=== PATIENT | male | born 1975 | race Two or more races ===

== ENCOUNTER → 2024-09-03 | Outpatient (CLI) | payer MEDICAID, SELFPAY ==
--- NOTE | 2024-09-03 14:00 | XR_ITS ---
Examination: MRI of brain without intravenous contrast. MRI brain with intravenous contrast. Date and time of exam:September 03, 2024 1559 hours INDICATIONS: Low back pain radiating to the legs, dizziness episodes beginning November 2022 Technique: Multiple axial and sagittal images of the brain to been obtained. Siemens high-resolution 1.52 Dulce Maria short bore scanner utilized. Sagittal sections, T1 weighted images, TR 500, TE 14, are performed. Axial sections proton-density and T2-weighted images have been obtained. Inversion recovery axial images, TR 9260, TE 111, TR 2500. Diffusion weighted images, axial sections, TR 4800, TE 128, B value 1000. Axial sections, ADC map, TR 4800, TE 128. Axial and coronal images were also obtained post 16 cc gadolinium administered intravenously. Findings:: Enlargement of the sella turcica is not present. The optic chiasm and infundibular stalk are not remarkable. There is no localized enlargement of the medulla or mohit. Fourth ventricle and cerebellar tonsils appear normal in position. No subacute area of hemorrhage density is seen. Fourth ventricle is midline. Mass in the cerebellopontine angle region is not evident. 7th and 8th nerve complexes exhibit symmetry Globes are symmetrical Orbital musculature including medial lateral rectus muscles do not exhibit abnormality Increased white matter signal is evident, scattered punctate foci increased signal in the white matter Effacement of the cortical sulcal markings is not identified. Mass effect upon the ventricular system is not identified. Diffusion-weighted images demonstrate no focus of restricted diffusion Contrast images demonstrate no abnormal enhancement Impression: Scattered punctate foci increased signal in the white matter, demyelinating disease pattern
== END | disposition home or self-care (01) ==
LOC: SMRI 09-04 08:01
PROVIDERS: PCP Nurse Practitioner Primary Care; Referring Provider Nurse Practitioner Primary Care; Visit Provider Nurse Practitioner Primary Care
DX: R90.82 White matter disease, unspecified (principal)
CPT/HCPCS: 70553; A9579

== ENCOUNTER 2025-04-07 20:44 | Inpatient (IN) | payer MEDICAID, SELFPAY ==
[2025-04-07 20:46] VITALS: BMI 30.7
[2025-04-07 21:02] VITALS: BP 133/86; PULSE 110; RESP 20; TEMP 37.7; O2SAT 97
--- NOTE | 2025-04-07 21:13 | XR_ITS ---
Examination: Duplex scan of the lower extremity, unilateral left Date and time of exam: April 07, 2025 10:12 PM INDICATIONS: Left leg swelling and pain 1 week Technique: Duplex scan of the extremity veins using B-mode/grayscale imaging and Doppler spectral analysis and color flow Attention is directed to internal echogenicity, compression and augmentation involving these veins, color flow assessment, spectral analysis Findings: Major deep venous structures in the extremity demonstrate normal course and caliber. There is no evidence of deep vein thrombosis. Normal color flow and spectral analysis Impression: Negative for DVT..
--- NOTE | 2025-04-07 21:13 | XR_ITS ---
Examination: Knee, left , 3 views Technique: Knee AP, lateral, oblique 3 views Date and time of exam: April 072024, 2116 hours INDICATIONS: Left knee pain one week FINDINGS: Minimal tricompartment osteoarthritis Prepatellar soft tissue prominence Small knee effusion No fracture IMPRESSION: Prepatellar soft tissue prominence, consider ultrasound soft tissue need follow-up to exclude prepatellar abscess
--- NOTE | 2025-04-07 21:13 | PD.EDRME ---
Rapid Medical Screening Exam RME Arrival date/time: 04/07/25 20:44 49M with no significant PMH presents to ED with 1 week of worsening LLE pain, redness, and swelling. Patient believes it started after he was poked by a lemon tree. Patient has not had a tetanus shot in the past 5 years. Patient has been taking Keflex and Doxy w/o improvement. Patient denies L knee surgery. Chief Complaint: Extremity Injury, Lower Vital signs: Vital Signs Temperature 99.8 F 04/07/25 21:02 Pulse Rate 110 H 04/07/25 21:02 Respiratory Rate 20 04/07/25 21:02 Blood Pressure 133/86 H 04/07/25 21:02 Pulse Oximetry (%) 97 04/07/25 21:02 Oxygen Delivery Method Room Air 04/07/25 21:02
[2025-04-07] MEDS: ACETAMINOPHEN 500 MG TABLET 1000 MG PO (21:37)
[2025-04-07] MEDS: DIPHTH,PERTUSS(ACELL),TET VAC 0.5 ML SYR- ADULT IMi (21:37)
[2025-04-07 21:43] LABS: Lactate (Lactic Acid) 1.1 mMol/L (0.4-2.0)
[2025-04-07 21:44] LABS: Basophils # (Auto) 0.1 Thou/mm3 (0.0-0.2); Basophils % (Auto) 1 % (0-2.5); Eosinophils # (Auto) 0.0 Thou/mm3 (0.0-0.5); Eosinophils % (Auto) 1 % (0-10); Hematocrit 42.0 % (41.0-53.0); Hemoglobin 14.6 g/dL (13.5-16.0); Immature Granulocytes Auto 0.41 Thou/mm3 (0.00-0.00); Lymphocytes # (Auto) 1.7 Thou/mm3 (1.0-4.8); Lymphocytes % (Auto) 27 % (10-50); Mean Corpuscular HGB Conc 34.8 g/dl (31.0-37.0); Mean Corpuscular Hemoglobin 32.1 pg (25.0-35.0); Mean Corpuscular Volume 92 fL (80-100); Monocytes # (Auto) 0.5 Thou/mm3 (0.0-0.8); Monocytes % (Auto) 8 % (0-12); Neutrophils # (Auto) 3.6 Thou/mm3 (1.8-7.7); Neutrophils % (Auto) 58 % (37-80); Nucleated Red Blood Cell # 0.00 Thou/mm3 (0.00-0.00); Nucleated Red Blood Cell % 0 /100 WBC (0); Platelet Count 234 Thou/mm3 (140-440); RDW Standard Deviation 42.2 fL (35.1-43.9); Red Blood Count 4.55 Miln/mm3 (4.50-5.90); White Blood Count 6.3 Thou/mm3 (3.8-10.6)
[2025-04-07 21:53] LABS: Sed Rate (ESR) 72 mm/hr (0-15)
[2025-04-07 22:13] LABS: Alanine Aminotransferase 59 U/L (10-49); Albumin, Serum 4.3 gm/dL (3.5-5.0); Albumin/Globulin Ratio 1.4 (1.2-2.2); Alkaline Phosphatase 80 U/L (46-116); Anion Gap 11 (7-16); Aspartate Amino Transferase 50 U/L (0-34); BUN/Creatinine Ratio 17 Ratio (12-20); Bilirubin,Total 0.8 mg/dL (0.3-1.2); Blood Urea Nitrogen 15 mg/dL (9-23); C-Reactive Protein 9.1 mg/dL (0.0-0.9); Calcium 9.1 mg/dL (8.3-10.6); Calcium (Corrected) 9.1 mg/dL (8.5-10.1); Carbon Dioxide 23.6 mMol/L (20.0-31.0); Chloride 104 mMol/L (98-107); Creatinine (Component) 0.9 mg/dL (0.6-1.3); Estimated Creatinine Clearance 103.3 mL/min (>60); Globulin 3.0 gm/dL (2.3-3.5); Glucose 103 mg/dL (74-106); Osmolality,Calculated 278 (275-295); Potassium 3.7 mMol/L (3.4-5.1); Procalcitonin 0.16 ng/ml (0.0-0.49); Sodium 139 mMol/L (136-145); Total Protein 7.3 gm/dL (5.7-8.2); eGFR > 60 See Note
[2025-04-08] VITALS (9 sets, daily range): BP systolic 124–137; BP diastolic 79–93; PULSE 70–81; RESP 16–19; TEMP 36.1–37.3; O2SAT 92–97
--- NOTE | 2025-04-08 | XR_ITS ---
Examination: Fluoroscopically guided left knee joint aspiration with imaging guidance Fluoroscopy AP right knee single view. Exam date and time: April 08, 2025 0911 hours INDICATIONS: Left knee swelling, clinical diagnosis infection left knee Informed consent provided. Technique: A timeout was completed verifying correct patient, procedure, site, positioning. The patient was placed in supine position appropriate for the steroid injection The patient's site was prepped and draped in sterile fashion 5 cc 1% lidocaine administered locally for anesthesia. Sterile drape applied, maximum barrier sterile technique. Utilizing fluoroscopic guidance, 21-gauge needle placed in the knee joint 10 cc turbid fluid withdrawn for analysis The patient was in satisfactory and stable condition on completion of the procedure Attending radiologist was present for the entire procedure Estimated blood loss 0 cc. Impression: Successful fluoroscopically guided left knee joint aspiration with imaging guidance Fluoroscopy 0.1 minute radiation dose 0.18 milligray 1 spot fluoroscopic AP knee film.
--- NOTE | 2025-04-08 00:15 | EDNOTE_ITS ---
ED Skin Abcess FB-RME/HPI General Chief complaint: Extremity Injury, Lower Stated complaint: LEFT LEG REDNESS, SWELLING, AND HOT TO TOUCH Arrival date/time: 04/07/25 20:44 RME / HPI RME / HPI narrative: 04/07/25 20:44 49M with no significant PMH presents to ED with 1 week of worsening LLE pain, redness, and swelling. Patient believes it started after he was poked by a lemon tree. Patient has not had a tetanus shot in the past 5 years. Patient has been taking Keflex and Doxy w/o improvement. Patient denies L knee surgery. 49 y/o male presents to ED c/o left knee redness, swelling, and pain x 7 days. Patient states he pricked his knee on a lemon tree 10 days ago. Patient was seen at the [facility] ED last Sunday for the same complaint. He is currently on Metformin, [place], Ibuprofen, Keflex, Doxycycline, and a probiotic. Related Data Allergies Allergy/AdvReac Type Severity Reaction Status Date / Time No Known Allergies Allergy Verified 04/07/25 20:46 Review of Systems Review of Systems Systems Reviewed: All systems reviewed, normal except as documented ED Exam Narrative Physical exam: GENERAL APPEARANCE: alert and oriented x 4, well-developed, well-nourished, no acute distress VITALS: All vitals were reviewed and the pulse ox is 97% on room air, which is normal according to my interpretation. HEENT: Normocephalic, atraumatic; pupils equal, round, reactive to light; EOMI; mucous membranes pink, moist; oropharynx clear NECK: Supple LUNGS: CTABL; no wheezes, no rales, no rhonchi HEART: Regular rate, regular rhythm; normal S1, S2; no murmurs ABDOMEN: non distended; normal BS; soft, no tenderness, no guarding, no rebound; no masses, no organomegaly, no hernia BACK: no CVA tenderness EXTREMITIES: atraumatic; no edema LLE: Knee erythematous, erythema circumferential, TTP, joint effusion, limited ROM, warm to touch NEUROLOGIC: awake; alert and oriented x4; cranial nerves II-XII grossly intact; no focal sensory or motor deficits PSYCHIATRIC: appropriate mood and affect SKIN: warm, dry, normal color; no rashes Course Quality Measures none Orders Category Date Time Status IV [Insert IV] STAT Care 04/08/25 00:56 Active Consult to Infectious Diseases Routine Cons 04/08/25 01:24 Ordered Consult to Orthopedic Stat Cons 04/08/25 01:35 Ordered US venous doppler LE LT Stat Exams 04/07/25 21:13 Completed XR knee LT 3V Stat Exams 04/07/25 21:13 Completed XR knee limited LT 2V Stat Exams 04/08/25 01:27 Ordered Blood Culture (Lab) Stat Lab 04/07/25 21:36 Received Body Fld Culture & Gram Stain Stat Lab 04/08/25 01:22 Received CBC Stat Lab 04/07/25 21:35 Completed CMP [Comprehensive Metabolic Panel] Stat Lab 04/07/25 21:35 Completed CRP [C-Reactive Protein] Stat Lab 04/07/25 21:35 Completed ESR [Sed Rate (ESR)] Stat Lab 04/07/25 21:35 Completed Lactate (Lactic Acid) Stat Lab 04/07/25 21:35 Completed Procalcitonin Stat Lab 04/07/25 21:35 Completed Wound Culture and Gram Stain Stat Lab 04/08/25 01:22 Received Acetaminophen Tab [Tylenol ES Tab] Med 04/07/25 21:13 Discontinued 1,000 mg PO X1 ONE Lidocaine 1% 20 ml [Xylocaine 1% 20 ML] Med 04/08/25 00:16 Discontinued 10 ml INFL X1 ONE Morphine Inj Med 04/08/25 00:20 Discontinued 5 mg IVP X1 ONE Ondansetron Inj [Zofran Inj] Med 04/08/25 00:20 Discontinued 4 mg IVP X1 ONE Piper/Tazo 3.375 gm Premix [Zosyn] Med 04/08/25 00:20 Discontinued 3.375 gm in 50 ml IV X1 TET,DIP/PERT AC (Adult)-Tdap [Boostrix Adult (Tdap) Med 04/07/25 21:14 Discontinued Vacc] 0.5 ml IMI .ONCE ONE Vancomycin Inj 1,000 mg Med 04/08/25 00:20 Active Sodium Chloride 0.9% 250 ml [Ns] 250 ml IV X1 Vital Signs Vital signs: Vital Signs Temperature 99.8 F 04/07/25 21:02 Pulse Rate 110 H 04/07/25 21:02 Respiratory Rate 20 04/07/25 21:02 Blood Pressure 133/86 H 04/07/25 21:02 Pulse Oximetry (%) 97 04/07/25 21:02 Oxygen Delivery Method Room Air 04/07/25 21:02 Skin / Abscess / Foreign Body MDM Narrative MDM Narrative:: Scribe Attestation: I, Devika Lawson, am scribing for and in the presence of Dr. Miller. Provider Notation: Although this document has been carefully reviewed, there may still be some phonetic and other typographical errors.? These errors are purely grammatical due to imperfections in the software program and should not be construed in any way to? compromise the substance of the patient's medical care during this visit. Patient data External records reviewed:: [facility] previous records (No prior ED records available for review.) Clinical information provided by:: patient Social determinants that could affect healthcare access:: none Patient has the following chronic illnesses:: None reported How is presenting disease/condition affected by chronic disease/condition?: no c hronic disease Evaluation data The following diagnostics were reviewed and interpreted by me:: lab results and radiology exam(s) Lab and/or radiology exams considered but not ordered:: None Interpretation Summary: RADIOLOGY Venous Doppler Study: Findings: Major deep venous structures in the extremity demonstrate normal course and caliber. There is no evidence of deep vein thrombosis. Normal color flow and spectral analysis Impression: Negative for DVT Left Knee X-Ray: FINDINGS: Minimal tricompartment osteoarthritis Prepatellar soft tissue prominence Small knee effusion No fracture IMPRESSION: Prepatellar soft tissue prominence, consider ultrasound soft tissue need follow-up to exclude prepatellar abscess Medications / Prescriptions Medications or Prescriptions considered but not ordered:: None Medication administrations:: Medication Administration History Vancomycin HCl 1,000 mg/ (Sodium Chloride) 250 mls @ 150 mls/hr IV X1 ONE Stop: 04/08/25 01:59 Last Admin: 04/08/25 01:25 Dose: 150 mls/hr Documented By: CG Discontinued Medications Acetaminophen (Acetaminophen 500 Mg Tablet) 1,000 mg PO X1 ONE Stop: 04/07/25 21:14 Last Admin: 04/07/25 21:37 Dose: 1,000 mg Documented By: OA Diphtheria/Tetanus/Acell Pertussis (Diphth,Pertuss(Acell),Tet Vac 0.5 Ml Syr- Adult) 0.5 ml IMi .ONCE ONE Stop: 04/07/25 21:15 Last Admin: 04/07/25 21:37 Dose: 0.5 ml Documented By: OTILIO Piperacillin/Tazobactam/Dextrose (Zosyn) 3.375 gm in 50 mls @ 100 mls/hr IV X1 ONE Stop: 04/08/25 00:49 Last Admin: 04/08/25 00:58 Dose: 100 mls/hr Documented By: RODRIGO Lidocaine HCl (Lidocaine Hcl 1% 20 Ml Vial) 10 ml INFL X1 ONE Stop: 04/08/25 00:17 Last Admin: 04/08/25 00:58 Dose: 10 ml Documented By: RODRIGO Morphine Sulfate (Morphine Sulf Inj 10 Mg/Ml Vial) 5 mg IVP X1 ONE Stop: 04/08/25 00:21 Last Admin: 04/08/25 00:57 Dose: 5 mg Documented By: RODRIGO Ondansetron HCl (Ondansetron Inj 2 Mg/Ml Inj 2 Ml) 4 mg IVP X1 ONE Stop: 04/08/25 00:21 Last Admin: 04/08/25 00:57 Dose: 4 mg Documented By: RODRIGO See above Consultations Consultation(s) initiated? (list below): Yes Consultation #1 (Physician, Specialty, Details): Discussed with Dr. Mccord for consult. Reviewed the patient?s HPI, PMHx, lab and/or radiology results. Treatment plan was discussed. Dr. Mccord will evaluate at bedside. Time: 00:13 Diagnosis Skin/Abscess Differential Diagnosis: abscess of skin or subcutaneous tissue, cellulitis, insect bites and contact dermatitis Most likely diagnosis given after review of the tests above:: LLE cellulitis Admission Indicated Admission indicated?: indicated Explain why admission is indicated or not indicated:: LLE cellulitis Admission Request Was there a request for admission?: Yes Admission Attestation Admission request attestation: Discussed case with [] from Hospitalist service regarding admission. Discussed patients ED course, exam findings, labs, and radiology results. The Hospitalist [agrees,declines] to accept the patient for admission. Disposition Plan Disposition Plan: Admit Discharge Plan Plan Patient Disposition: Admit Acute Care w/in Hospital Prescriptions/Referrals Referrals: Mata ([facility]),GIANCARLO Nava [Primary Care Provider] - In 1 week Problem List Clinical Impression: Cellulitis of left lower extremity Patient/Caregiver Discharge Instructions Print Language: Togolese Stand Alone Forms: Felipa Award Info., Patient Portal Info Letter
[2025-04-08] MEDS: ONDANSETRON INJ 2 MG/ML INJ 2 ML 4 MG IVP (00:57)
[2025-04-08] MEDS: MORPHINE SULF INJ 10 MG/ML VIAL 5 MG IVP (00:57)
[2025-04-08] MEDS: PIPER/TAZO 3.375 GM PREMIX 3.375 GM/50 ML BAG IV ×4 (00:58→21:01)
[2025-04-08] MEDS: LIDOCAINE HCL 1% 20 ML VIAL 10 ML INFL (00:58)
--- NOTE | 2025-04-08 01:05 | ESCONSULT_ITS ---
HPI Consult details Reason for consultation narrative: Pain left lower extremity History of present illness: 49-year-old male who states Sosa spine penetrating injury left knee. Increased pain swelling. Went to [facility]. This placed on doxycycline and Keflex. Situation became worse. Then presented to the emergency room here at 9:00 tonight. With flexion extension. Swelling left leg. Past Medical History Past Medical History ENDOCRINE: Positive Diabetes Mellitus Type 2 Social History SMOKING STATUS: Never smoker Meds Home Medications and Allergies Allergies Allergy/AdvReac Type Severity Reaction Status Date / Time No Known Allergies Allergy Verified 04/07/25 20:46 Exam Vital Signs Temp Pulse Resp BP Pulse Ox O2 Del Method 99.8 F 110 H 20 133/86 H 97 Room Air 04/07/25 21:02 04/07/25 21:02 04/07/25 21:02 04/07/25 21:02 04/07/25 21:02 04/07/25 21:02 Heart rate 110, temp 99.8 Narrative Exam Pain and swelling left lower extremity. Edema about left knee. Has apparent vesicles anterior aspect left knee these are new. Did not have these before this problem started day Does seem to have an effusion. Difficult to tell. See aspiration note. Edema left leg. Knee aspirated using 16-gauge needle anterior lateral portal. 3 passes After area anesthetized with 1% lidocaine. I went through quad tendon. Went and touched anterior lateral aspect of patella full depth of needle. It was a 16- gauge needle to aspirate. Small amount of blood less than 1 cc. This is sent for culture Gram stain. One of the vesicles unroofed and no fluid encountered. Has an impetiginous appearance. I am going to anticipate that it is strep. Results - Ortho Labs 04/07/25 21:35 04/07/25 21:35 Labs: Short CBC 04/07/25 Range/Units 21:35 WBC 6.3 (3.8-10.6) Thou/mm3 Hgb 14.6 (13.5-16.0) g/dL Hct 42.0 (41.0-53.0) % Plt Count 234 (140-440) Thou/mm3 BMP 04/07/25 21:35 Sodium 139 Potassium 3.7 Chloride 104 Carbon Dioxide 23.6 BUN 15 Creatinine 0.9 Glucose 103 Calcium 9.1 Liver Function 07/22/25 Range/Units 21:35 Total Bilirubin 0.8 (0.3-1.2) mg/dL AST 50 H (0-34) U/L ALT 59 H (10-49) U/L Alkaline Phosphatase 80 (46-116) U/L Albumin 4.3 (3.5-5.0) gm/dL White count 6300, ESR CRP markedly elevated Assessment & Plan Additional Assessment Additional comments: Needs to be admitted. I would start him on vancomycin and Zosyn needs to be started tonight SHANTELL. Hospitalist to admit Plan I want to make sure we did not miss anything. Will ask radiology to aspirate under ultrasound in a.m. I want to make sure I did not miss anything. Also want stat MR scan in a.m. Aspiration to take precedence over MR scan. DVT study negative. X-ray negative for osteo-.
[2025-04-08] MEDS: Vancomycin Inj 1,000 MG in SODIUM CHLORIDE 0.9% 250 ML 250 ML 150 MG IV (01:25)
--- NOTE | 2025-04-08 01:43 | ESHP_ITS ---
Documentation for date of: 04/08/25 HPI History of Present Illness Chief complaint: Left knee pain History of present illness: 49-year-old male with past medical history of prediabetes, hypertension, obesity presenting to the ED on 04/08 with left knee pain. Patient stated that a week ago around Saturday 03/31 he was working in the [employer] when he got pricked by a lemon thorn and since that day his left knee has started hurting. Patient states that his knee started becoming red so he went to [facility] ED at which point they discharged him with oral Keflex and doxycycline. Patient states that he has been taking his antibiotics but the left knee has started to become more painful and he is not able to put pressure on it. Patient denies any fever/chills, shortness of breath, chest pain or any other concerning symptoms. Patient denies having any similar episodes in the past. Medical history: As stated above Surgical history: Denies Allergies: NKDA Medications: Pending med rec Family history: Noncontributory Social history: Patient works in the [employer], lives in [place], denies any tobacco or illicit drug use. Drinks alcohol occasionally ROS: All 12 systems assessed and the patient denies unless otherwise stated in HPI In the ED, patient presented mildly hypertensive 133/86, tachycardic heart rate of 110, respiratory rate of 20, mildly febrile 99.8 ?F and saturating 97 on room air. Pertinent lab findings include WBC of 6.3, BUN 15, creatinine 0.9, EGFR greater than 60, lactic acid of 1.1, T. bili 0.8, AST of 50, ALT of 59, Pro-Ronald of 0.16. Knee x-ray shows prepatellar soft tissue prominence, venous Doppler study is negative for any DVT. ED physician contacted orthopedic surgeon Dr. Mccord who attempted to do a tap of the left knee for septic arthritis but was unsuccessful; plan is to do a ultrasound-guided one the following day. Patient will be admitted for management of septic arthritis with IV antibiotics and IV fluids resuscitation along with ID consultation and orthopedic consultation for proper management. Exam Vital Signs Temp Pulse Resp BP Pulse Ox O2 Del Method 99.8 F 110 H 20 133/86 H 97 Room Air 04/07/25 21:02 04/07/25 21:02 04/07/25 21:04/07/25 21:02 04/07/25 21:02 04/07/25 21:02 Narrative Exam Physical Exam: GENERAL: Awake, answering questions appropriately in Polish, appears stated age HEENT: NC/AT. Moist mucosa. PERRLA/EOMI. CARDIO: Heart RRR, no obvious murmurs, no JVD. PULM: No coughing or visible SOB. Lungs CTA B/L. GI: Abdomen soft, NT/ND, there are stretch giordano? noted in the right lower and left lower quadrants. Borborygmi apparent SKIN/MSK/EXT: Left knee erythematous and warm, bandaged. No discoloration/rashes/edema/amputations noted. +Pedal pulses present B/L. NEURO: Oriented x3, dorsiflexion and plantarflexion 5 out of 5 in bilateral lower extremities, R lower extremity 5 out of 5 strength, left lower extremity 4 out of 5 strength, Moves extremities x4, no focal neurologic deficits noted. Results: Labs 04/07/25 21:35 04/07/25 21:35 Labs: Short CBC 04/07/25 Range/Units 21:35 WBC 6.3 (3.8-10.6) Thou/mm3 Hgb 14.6 (13.5-16.0) g/dL Hct 42.0 (41.0-53.0) % Plt Count 234 (140-440) Thou/mm3 BMP 04/07/25 21:35 Sodium 139 Potassium 3.7 Chloride 104 Carbon Dioxide 23.6 BUN 15 Creatinine 0.9 Glucose 103 Calcium 9.1 Liver Function 04/07/25 Range/Units 21:35 Total Bilirubin 0.8 (0.3-1.2) mg/dL AST 50 H (0-34) U/L ALT 59 H (10-49) U/L Alkaline Phosphatase 80 (46-116) U/L Albumin 4.3 (3.5-5.0) gm/dL Quality Measures Quality Measures none Medications Home Medications and Allergies Home Medications ?Medication ?Instructions ?Recorded ?Confirmed ?Type L.acidophilus-L.bulgar-B.bifid-S.thermoph 1 tab PO QDA Y 04/08/25 04/08/25 History 1 billion cell-250 mg tablet (Jamila-Bid) atorvastatin 40 mg tablet 40 mg PO QDAY 04/08/2504/08 History hydrocodone 5 mg-acetaminophen 325 1 tab PO Q6H PRN pa in 04/08/25 04/08/25 History mg tablet ibuprofen 400 mg tablet 400 mg PO Q8H PRN fever or p ain 04/08/25 04/08/25 History lisinopril 20 mg tablet 20 mg PO QDAY 04/08/2504/08 History metformin 500 mg tablet,extended 500 mg PO QDAY 04/08/25 History release 24 hr Allergies Allergy/AdvReac Type Severity Reaction Status Date / Time No Known Allergies Allergy Verified 04/07/25 20:46 Visit Medications Acetaminophen (Acetaminophen 325 Mg Tablet) 650 mg PO Q6H PRN PRN Reason: PAIN SCALE 1-3 (mild Stop: 05/08/25 01:38 Hydrocodone Bitart/Acetaminophen (Hydrocodone/Apap 10/325 Tab) 1 tab PO Q4H PRN PRN Reason: PAIN SCALE 4-6 (Moderate Stop: 04/13/25 01:38 Dextrose (Dextrose 50%-Water Inj 50 Ml Syringe) 25 ml IV Q15MIN PRN PRN Reason: BG 50-70 responsive npo pt Stop: 05/08/25 01:38 Dextrose (Dextrose 50%-Water Inj 50 Ml Syringe) 50 ml IV Q15MIN PRN PRN Reason: BG <50 OR BG <70 & pt unresponsive Stop: 05/08/25 01:38 Glucagon (Glucagon Inj 1 Mg Vial) 1 mg IM Q15MIN PRN PRN Reason: BG <70, and no IV access Heparin Sodium (Porcine) (Heparin Sod Inj 5000 Unit/Ml Vial) 5,000 unit SC Q12HR [facility] Stop: 04/22/25 08:59 Vancomycin HCl 1,000 mg/ (Sodium Chloride) 250 mls @ 150 mls/hr IV X1 ONE Stop: 04/08/25 01:59 Last Admin: 04/08/25 01:25 Dose: 150 mls/hr Lactated Ringer's (Lactated Ringers) 1,000 mls @ 75 mls/hr IV .[id number] [facility] Stop: 04/08/25 15:04 Piperacillin/Tazobactam/Dextrose (Zosyn) 50 mls @ 100 mls/hr IV Q6HR [facility] Stop: 04/15/25 01:42 Insulin Human Lispro (Insulin Lispro (Admelog) 1 Unit/0.01 Ml Unit) 0 unit SC Q6H DARREN; Protocol Stop: 05/08/25 01:44 Morphine Sulfate (Morphine Sulf Inj 10 Mg/Ml Vial) 1 mg IVP Q6H PRN PRN Reason: PAIN SCALE 7-10 (Severe Stop: 04/13/25 01:38 Ondansetron HCl (Ondansetron Inj 2 Mg/Ml Inj 2 Ml) 4 mg IVP Q6H PRN; Protocol PRN Reason: NAUSEA OR VOMITING Stop: 05/08/25 01:38 Pharmacy Consult (Vancomycin Pharmacy To Dose 1 Each Each) 1 each IV QDAY DARREN Stop: 05/08/25 08:59 Sennosides (Senna Tablet) 1 tab PO QDAY PRN; Protocol PRN Reason: constipation Stop: 05/08/25 01:38 Discontinued Medications Acetaminophen (Acetaminophen 500 Mg Tablet) 1,000 mg PO X1 ONE Stop: 04/07/25 21:14 Last Admin: 04/07/25 21:37 Dose: 1,000 mg Diphtheria/Tetanus/Acell Pertussis (Diphth,Pertuss(Acell),Tet Vac 0.5 Ml Syr- Adult) 0.5 ml IMi .ONCE ONE Stop: 04/07/25 21:15 Last Admin: 04/07/25 21:37 Dose: 0.5 ml Piperacillin/Tazobactam/Dextrose (Zosyn) 3.375 gm in 50 mls @ 100 mls/hr IV X1 ONE Stop: 04/08/25 00:49 Last Admin: 04/08/25 00:58 Dose: 100 mls/hr Lidocaine HCl (Lidocaine Hcl 1% 20 Ml Vial) 10 ml INFL X1 ONE Stop: 04/08/25 00:17 Last Admin: 04/08/25 00:58 Dose: 10 ml Morphine Sulfate (Morphine Sulf Inj 10 Mg/Ml Vial) 5 mg IVP X1 ONE Stop: 04/08/25 00:21 Last Admin: 04/08/25 00:57 Dose: 5 mg Ondansetron HCl (Ondansetron Inj 2 Mg/Ml Inj 2 Ml) 4 mg IVP X1 ONE Stop: 04/08/25 00:21 Last Admin: 04/08/25 00:57 Dose: 4 mg Assessment & Plan Plan 49-year-old male with past medical history of prediabetes, hypertension, obesity presenting to the ED with left knee pain will be admitted for management of septic arthritis with IV antibiotics and IV fluids resuscitation along with ID consultation and orthopedic consultation for proper management. #Septic arthritis As stated in HPI, had a foreign object because he injury to his left knee which has progressively worsened Patient failed outpatient oral antibiotic therapy On examination, patient's left leg is erythematous and swollen; currently bandaged after attempt at By Dr. Nash Patient does not have elevated WBC but did present with low-grade fever and tachycardia Knee x-ray shows prepatellar soft tissue prominence venous Doppler study is negative for any DVT Plan: Continue patient on IV Zosyn and IV Vanco Orthopedic surgery, Dr. Mccord consulted, appreciate recommendation Dr Mccord will attempt alongside Dr. Fulton ultrasound-guided tap of the left knee to make sure there is no pus Dr Eaton, ZOILA, consulted for recommendations N.p.o. Multimodal pain management Will hold off on anticoagulation at this time #Elevated liver enzymes #Obesity Likely related to obesity, patient has BMI of 30.7 Occasional alcohol use versus metabolic associated steatotic liver disease Plan: Monitor with morning labs Consider liver ultrasound Consider obtaining hepatitis panel #Hypertension #Prediabetes Chronic medical conditions Pending med rec Plan: Restart home medications when appropriate Follow-up on morning A1c and lipid panel Health Maintenance: Lines: PIV Diet: N.p.o. Bowel: Senna as needed GI prophylaxis: Not needed DVT prophylaxis: Not needed at this time Dispo: Pending ultrasound-guided arthrocentesis? Orthopedic surgery and infectious disease consulted Code: Full Patient seen and assessed with attending Dr. America Busch DO PGY-2 Internal Medicine - GME Attending Provider Attestation/Addendum I attest that I was physically present for the evaluation, physical examination, lab and imaging review of the patient with the residents. I discussed the case with the residents and agree with the findings and plans of care as documented above. After examination of the patient and review of the clinical data I feel that this patient needs admission to the hospital for further treatment/evaluation. Patient is a 49 years old male with past medical history of prediabetes, hypertension and obesity who presented to the ED with complaint of left knee pain. Patient started having his symptoms about a week ago, after getting pricked by a lemon thorn. Patient recently visited [facility] after he started having swelling and redness and was discharged on Keflex and doxycycline. Despite the antibiotics, his symptoms continue to worsen for which she decided to visit the ED. In the ED, blood pressure was 133/86, pulse 110, temperature 99.8 and respiratory 20. Lab results show WBC of 6.3, AST 50, ALT 59. X-ray of the knees showed prepatellar soft tissue prominence, venous Doppler was negative for DVT. On exam, left knee was erythematous and warm, covered in bandages, there was 2+ edema throughout left lower extremity, tenderness and redness extending both side from the knee. Orthopedics was contacted by ED, who attempted aspiration but septic knee but was unsuccessful. Recommended admission of the patient, start broad-spectrum antibiotics, and as patient return tomorrow morning with ultrasound-guided.we will admit the patient for management of septic arthritis, started on IV Zosyn and vancomycin. Orthopedics on board, appreciate recommendations. Infectious disease has been consulted. Started analgesic regimen. Patient also noted to have elevated liver enzyme, we will follow-up with morning labs. Zachery Cross MD
[2025-04-08] MEDS: RINGERS LACTATED 1000 ML 1,000 ML 75 ML IV (04:05)
[2025-04-08] MEDS: MORPHINE SULF INJ 10 MG/ML VIAL IVP (04:27)
[2025-04-08 06:18] LABS: Basophils # (Auto) 0.1 Thou/mm3 (0.0-0.2); Basophils % (Auto) 1 % (0-2.5); Eosinophils # (Auto) 0.1 Thou/mm3 (0.0-0.5); Eosinophils % (Auto) 1 % (0-10); Hematocrit 36.4 % (41.0-53.0); Hemoglobin 12.4 g/dL (13.5-16.0); Immature Granulocytes Auto 0.41 Thou/mm3 (0.00-0.00); Lymphocytes # (Auto) 1.2 Thou/mm3 (1.0-4.8); Lymphocytes % (Auto) 21 % (10-50); Mean Corpuscular HGB Conc 34.1 g/dl (31.0-37.0); Mean Corpuscular Hemoglobin 32.0 pg (25.0-35.0); Mean Corpuscular Volume 94 fL (80-100); Monocytes # (Auto) 0.5 Thou/mm3 (0.0-0.8); Monocytes % (Auto) 8 % (0-12); Neutrophils # (Auto) 3.5 Thou/mm3 (1.8-7.7); Neutrophils % (Auto) 62 % (37-80); Nucleated Red Blood Cell # 0.00 Thou/mm3 (0.00-0.00); Nucleated Red Blood Cell % 0 /100 WBC (0); Platelet Count 206 Thou/mm3 (140-440); RDW Standard Deviation 43.5 fL (35.1-43.9); Red Blood Count 3.88 Miln/mm3 (4.50-5.90); White Blood Count 5.7 Thou/mm3 (3.8-10.6)
[2025-04-08 06:43] LABS: Glucose Estimated Average 123 mg/dL (80-131); Hemoglobin A1C 5.9 % Hgb (4.8-6.0)
[2025-04-08 06:51] LABS: Alanine Aminotransferase 46 U/L (10-49); Albumin, Serum 3.7 gm/dL (3.5-5.0); Albumin/Globulin Ratio 1.5 (1.2-2.2); Alkaline Phosphatase 66 U/L (46-116); Anion Gap 11 (7-16); Aspartate Amino Transferase 42 U/L (0-34); BUN/Creatinine Ratio 18 Ratio (12-20); Bilirubin,Total 0.7 mg/dL (0.3-1.2); Blood Urea Nitrogen 16 mg/dL (9-23); Calcium 8.6 mg/dL (8.3-10.6); Calcium (Corrected) 8.8 mg/dL (8.5-10.1); Carbon Dioxide 25.3 mMol/L (20.0-31.0); Cardiac Risk Estimate 6.5 RATIO (4.0-6.7); Chloride 104 mMol/L (98-107); Cholesterol 157 mg/dL (132-200); Creatinine (Component) 0.9 mg/dL (0.6-1.3); Estimated Creatinine Clearance 101.8 mL/min (>60); Globulin 2.5 gm/dL (2.3-3.5); Glucose 98 mg/dL (74-106); HDL Cholesterol 24 mg/dL (40-60); LDL Cholesterol,Calculated 100 mg/dL (0-130); Magnesium 1.5 mg/dL (1.6-2.6); Osmolality,Calculated 280 (275-295); Phosphorous 3.5 mg/dL (2.4-5.1); Potassium 4.1 mMol/L (3.4-5.1); Sodium 140 mMol/L (136-145); Total Protein 6.2 gm/dL (5.7-8.2); Triglycerides 164 mg/dL (30-150); eGFR > 60 See Note
[2025-04-08] MEDS: Magnesium Sulfate 4 GM Ivpb 4 GM/50 ML BAG IV (08:39)
[2025-04-08 10:33] LABS: Basophils (Manual) 1 % (0-2); Eosinophils (Manual) 1 % (0-4); Lymphocytes (Manual) 19 % (20-44); Metamyelocytes (Manual) 1 % (0-0); Monocytes (Manual) 12 % (2-9); Myelocytes (Manual) 2 % (0-0); Neutrophils (Manual) 64 % (50-70)
[2025-04-08] MEDS: VANCOMYCIN/WATER 1GM IVPB 200 ML IV ×2 (10:41→21:01)
[2025-04-08 11:06] LABS: Synovial Fluid, Crystals* See Sep Rpt
[2025-04-08 11:30] LABS: Synovial Fluid WBC 215 /cmm
[2025-04-08 11:31] LABS: Source,Synovial Fluid Knee
[2025-04-08 11:32] LABS: Synovial Fluid Appearance Hazy; Synovial Fluid Color Yellow; Synovial Fluid Mononuclear 60 %; Synovial Fluid Polynuclear 40 %; Synovial Fluid RBC 13000 /cmm
--- NOTE | 2025-04-08 11:47 | PC.SS ---
Patient Uriel Zamarripa is a 49 Year old male admitted for Septic Arthritis. SS met with patient at bedside to discuss discharge plan. Patient appeared to be alert and oriented, patients reports he lives at home with family. Patient reports his life partner, Afsaneh Pond is his surrogate decision maker, [phone]. Patient reports that prior to admission he would utilize a Rollator walker to assist with ambulation. Patient is able to complete all ADL's independently. Patients PCP is Brandy August. At time of discharge patient will return home once medically cleared, family will provide transportation. Next of Kin: Life Partner, [phone] Discharge Plan: Home
[2025-04-08 11:57] LABS: Synovial Fld, Specific Gravity 1.010
--- NOTE | 2025-04-08 14:33 | ESPR_ITS ---
Subjective Subjective Interval history: L knee swelling and pain. joint aspirate unimpressive. no dvt on imaging. L leg inflammed Exam Vital Signs Temp Pulse Resp BP Pulse Ox O2 Del Method 97.1 F 74 17 126/86 H 95 Room Air 04/08/25 12:00 04/08/25 12:00 04/08/25 12:00 04/08/25 12:00 04/08/25 12:00 04/08/25 07:43 Narrative Exam decreased rom of L leg. Objective - Internal Medicine Labs 04/08/25 04:31 04/08/25 04:31 Labs: Laboratory Results - last 24 hr 04/07/25 04/08/25 04/08/25 21:35 04:31 09:50 WBC 6.3 5.7 RBC 4.55 3.88 L Hgb 14.6 12.4 L D Hct 42.0 36.4 L MCV 92 94 MCH 32.1 32.0 MCHC 34.8 34.1 RDW Std Deviation 42.2 43.5 Plt Count 234 206 Neut % (Auto) 58 62 Lymph % (Auto) 27 21 [place] % (Auto) 8 8 Eos % (Auto) 1 1 Baso % (Auto) 1 1 Neut # (Auto) 3.6 3.5 Lymph # (Auto) 1.7 1.2 Rab[place] # (Auto) 0.5 0.5 Eos # (Auto) 0.0 0.1 Baso # (Auto) 0.1 0.1 Immature Gran # (Auto) 0.41 H 0.41 H Absolute Nucleated RBC 0.00 0.00 Immature Gran % 7 H 7 H Neutrophils % (Manual) 64 Monocytes % (Manual) 12 H Eosinophils % (Manual) 1 Basophils % (Manual) 1 Metamyelocytes % 1 H Myelocytes % 2 H Nucleated RBC % 0 0 Lymphocytes (Manual) 19 L ESR 72 H Sodium 139 140 Potassium 3.7 4.1 Chloride 104 104 Carbon Dioxide 23.6 25.3 Anion Gap 11 11 BUN 15 16 Creatinine 0.9 0.9 Estim Creat Clear Calc 103.3 101.8 eGFR > 60 > 60 BUN/Creatinine Ratio 17 18 Glucose [address] Glu mg/dL 123 Hemoglobin A1c 5.9 Calculated Osmolality 278 280 Lactic Acid 1.1 Calcium 9.1 8.6 Corrected Calcium 9.1 8.8 Phosphorus 3.5 Magnesium 1.5 L Total Bilirubin 0.8 0.7 AST 50 H 42 H ALT 59 H 46 Alkaline Phosphatase 80 66 C-Reactive Prot, Quant 9.1 H Total Protein 7.3 6.2 Albumin 4.3 3.7 D Globulin 3.0 2.5 Albumin/Globulin Ratio 1.4 1.5 Triglycerides 164 H Cholesterol 157 LDL Cholesterol, Calc 100 HDL Cholesterol 24 L Cholesterol/HDL Ratio 6.5 Procalcitonin 0.16 Synovial Source Knee Synovial Color Yellow Synovial Appearance Hazy Synovial WBC 215 Syn[place] RBC 57883 Synov Polynuclear WBCs 40 Synov Mononuclear WBCs 60 Synovial Specific Grav 1.010 Assessment & Plan A&P Narrative L leg swelling and L leg and knee pain with unimpressive us and joint aspirate but impressive exam pt is a bit old for gc related infection, but it is possible. I did not ask about sexual exposures, but will screen urine for gc as precaution Time Spent With Patient Time: Total time spent is greater than 50% in coordination of care (as documented) at patient's floor/unit and/or counseling patient:
--- NOTE | 2025-04-08 14:36 | PC.SS ---
SS follow up note; note; Wound cultures and ID rec's pending. Patient will discharge home when medically cleared.
--- NOTE | 2025-04-08 17:46 | ESPR_ITS ---
<Statement entered by Adriano Rodríguez MD - 04/08/25 18:23> Patient was seen and examined at the bedside. No acute overnight events were reported. Patient had arthrocentesis without complication today. Synovial fluid analysis only showed moderate RBCs but do not have dramatic elevation in WBC. Waiting on culture results. Will continue with Vanco and Zosyn. Home medications were resumed. All labs and orders were reviewed. I discussed and supervised with the environmental engineering intern physician who took care of this patient. I personally saw and examined the patient. I agree with most of the assessment and plan. Disclaimer: Despite multiple revisions, due to the dictation software being used, the document bellow may not be free of grammatical errors including phonetic/typographic errors. However, this does not deter from our commitment to providing health care in the patient's best interest in mind. Plan of care discussed with attending Physician Dr. Bryan Rodríguez MD PGY-3 Documentation for date of: 04/08/25 Subjective Subjective Interval history: No overnight events. Evaluated at bedside. Left knee US guided arhtrocentesis perforemd by IR team, aspiration fluid sent for cytology, culture, and gram stain. On exam, pt's left knee is erythematous and swollen with limited range of motion to left knee due to pain. Pt continue to be afebrile. Improved demarcation of erythema. Exam Vital Signs Temp Pulse Resp BP Pulse Ox O2 Del Method 97.6 F 70 16 129/81 95 Room Air 04/08/25 16:00 04/08/25 16:09 04/08/25 16:00 04/08/25 16:00 04/08/25 16:00 04/08/25 16:00 Narrative Exam General: Well appearing, well nourished, in no distress. Oriented x 3, normal mood and affect . Head: Normocephalic, atraumatic, no visible or palpable masses, depressions, or scaring. Heart: No cardiomegaly or thrills; regular rate and rhythm, no murmur or gallop Lungs: Clear to auscultation and percussion. No rales, wheeze, or rhonchi Abdomen: Bowel sounds normal, no tenderness, organomegaly, masses, or hernia Back: Spine normal without deformity or tenderness, no CVA tenderness Extremities: Erythema with swelling to left knee, with redness spreading both proximal and distally on LLE. Improved demarcation of erythema. Musculoskeletal: Limited range of motion to left knee due to pain. Objective Labs 04/09/25 05:52 04/09/25 05:52 Labs: Laboratory Results - last 24 hr 04/07/25 04/08/25 04/08/25 21:35 04:31 09:50 WBC 6.3 5.7 RBC 4.55 3.88 L Hgb 14.6 12.4 L D Hct 42.0 36.4 L MCV 92 94 MCH 32.1 32.0 MCHC 34.8 34.1 RDW Std Deviation 42.2 43.5 Plt Count 234 206 Neut % (Auto) 58 62 Lymph % (Auto) 27 21 [place] % (Auto) 8 8 Eos % (Auto) 1 1 Baso % (Auto) 1 1 Neut # (Auto) 3.6 3.5 Lymph # (Auto) 1.7 1.2 [place] # (Auto) 0.5 0.5 Eos # (Auto) 0.0 0.1 Baso # (Auto) 0.1 0.1 Immature Gran # (Auto) 0.41 H 0.41 H Absolute Nucleated RBC 0.00 0.00 Immature Gran % 7 H 7 H Neutrophils % (Manual) 64 Monocytes % (Manual) 12 H Eosinophils % (Manual) 1 Basophils % (Manual) 1 Metamyelocytes % 1 H Myelocytes % 2 H Nucleated RBC % 0 0 Lymphocytes (Manual) 19 L ESR 72 H Sodium 139 140 Potassium 3.7 4.1 Chloride 104 104 Carbon Dioxide 23.6 25.3 Anion Gap 11 11 BUN 15 16 Creatinine 0.9 0.9 Estim Creat Clear Calc 103.3 101.8 eGFR > 60 > 60 BUN/Creatinine Ratio 17 18 Glucose [address] Glu mg/dL 123 Hemoglobin A1c 5.9 Calculated Osmolality 278 280 Lactic Acid 1.1 Calcium 9.1 8.6 Corrected Calcium 9.1 8.8 Phosphorus 3.5 Magnesium 1.5 L Total Bilirubin 0.8 0.7 AST 50 H 42 H ALT 59 H 46 Alkaline Phosphatase 80 66 C-Reactive Prot, Quant 9.1 H Total Protein 7.3 6.2 Albumin 4.3 3.7 D Globulin 3.0 2.5 Albumin/Globulin Ratio 1.4 1.5 Triglycerides 164 H Cholesterol 157 LDL Cholesterol, Calc 100 HDL Cholesterol 24 L Cholesterol/HDL Ratio 6.5 Procalcitonin 0.16 Synovial Source Knee Synovial Color Yellow Synovial Appearance Hazy Synovial WBC 215 Synovial RBC 20856 Synov Polynuclear WBCs 40 Synov Mononuclear WBCs 60 Synovial Specific Grav 1.010 Quality Measures Quality Measures VTE prophylaxis Assessment & Plan Assessment Current Active Medications: Generic Name Dose Route Start Last Admin Trade Name Freq PRN Reason Stop Dose Admin Acetaminophen 650 mg 04/08/25 01:39 Acetaminophen 325 Mg Tablet PO 05/08/25 01:38 Q6H PRN PAIN SCALE 1-3 (mild Hydrocodone Bitart/Acetaminophen 1 tab 04/08/25 01:39 Hydrocodone/Apap 10/325 Tab PO 04/13/25 01:38 Q4H PRN PAIN SCALE 4-6 (Moderate Dextrose 25 ml 04/08/25 01:39 Dextrose 50%-Water Inj 50 Ml Syringe IV 05/08/25 01:38 Q15MIN PRN BG 50-70 responsive npo pt Dextrose 50 ml 04/08/25 01:39 Dextrose 50%-Water Inj 50 Ml Syringe IV 05/08/25 01:38 Q15MIN PRN BG <50 OR BG <70 & pt unresponsive Glucagon 1 mg 04/08/25 01:39 Glucagon Inj 1 Mg Vial IM Q15MIN PRN BG <70, and no IV access Piperacillin/Tazobactam/Dextrose 3.375 gm in 50 mls @ 12.5 mls/hr 04/08/25 06:00 04/08/25 14:04 Zosyn IV 04/15/25 05:59 12.5 mls/hr Q8HR DARREN Administration Vancomycin HCl 200 mls @ 120 mls/hr 04/08/25 10:00 04/08/25 10:41 Vancomycin/Water 1gm Ivpb IV 04/15/25 09:59 120 mls/hr BID@1000,2200 DARREN Administration Morphine Sulfate 1 mg 04/08/25 01:39 04/08/25 04:27 Morphine Sulf Inj 10 Mg/Ml Vial IVP 04/13/25 01:38 1 mg Q6H PRN Administration PAIN SCALE 7-10 (Severe Ondansetron HCl 4 mg 04/08/25 01:39 Ondansetron Inj 2 Mg/Ml Inj 2 Ml IVP 05/08/25 01:38 Q6H PRN NAUSEA OR VOMITING Protocol Pharmacy Consult 1 each 04/08/25 09:00 Vancomycin Pharmacy To Dose 1 Each Each IV 05/08/25 08:59 QDAY PRN CONSULT Sennosides 1 tab 04/08/25 01:39 Senna Tablet PO 05/08/25 01:38 QDAY PRN constipation Protocol Plan 49-year-old male with past medical history of prediabetes, hypertension, obesity presenting to the ED with left knee pain will be admitted for management of septic arthritis with IV antibiotics and IV fluids resuscitation along with ID consultation and orthopedic consultation for proper management. Continue patient on IV Zosyn and IV Vanco per ortho recommendation. Pending joint aspiration cultures/gram stain/cytology. Pending MR left knee. #Septic arthritis As stated in HPI, had a foreign object because he injury to his left knee which has progressively worsened Patient failed outpatient oral antibiotic therapy On examination, patient's left leg is erythematous and swollen; currently bandaged after attempt at By Dr. Nash Patient does not have elevated WBC but did present with low-grade fever and tachycardia Knee x-ray shows prepatellar soft tissue prominence venous Doppler study is negative for any DVT Plan: - Continue patient on IV Zosyn and IV Vanco per ortho recommendation. - Pening MR left knee non con. - Dr Eaton, ID, consulted : pending cocci serology, chlamydia/GC/TV PCR, Hep C, HIV 1&2, synovial fluid cultures - resume regular diet - Multimodal pain management - Will hold off on anticoagulation at this time #Elevated liver enzymes #Obesity Likely related to obesity, patient has BMI of 30.7 Occasional alcohol use versus metabolic associated steatotic liver disease - Monitor with morning labs - Consider liver ultrasound - Consider obtaining hepatitis panel - Outpt follow up with PCP #Hypertension #Hyperlipidemia #Hypertriglycerinemia #Prediabetes - Chronic medical conditions - Outpt follow up with PCP - Continue home medication lisinopril 20mg and atorvastatin 40mg #Hypomagnesia initial Mg 1.5 - Mg 4g x 1 - Daily labs, replete if <2 Dispo: Tele DVT prophylaxis: Lovenox 40mg GI prophylaxis: Protonix 40mg Diet: Regular diet Lines: Peripheral IV Code status: Full code Case discussed with my senior resident Dr. Rodríguez Case discussed with my attending Dr. Bryan Duggan DO PGY 1 Attending Provider Attestation/Addendum ISusie DO, attest that I was physically present for the lezama portions of the service and evaluated the patient with the resident and I reviewed and discussed the case with the resident and agree with the resident's findings and plans of care as documented above Patient seen and eval this a.m. He underwent IR aspiration this a.m. Synovial fluid studies show 250 WBCs, not concerning for septic arthritis. Effusion could be due to trauma as there is a lot of RBCs as well. Patient does have an erythematous left knee with an abrasion over the patellar region. Some serosanguineous drainage noted. Patient has limited range of motion due to pain at about 10 degrees of flexion. Low suspicion for septic arthritis given fluid studies and ability to move knee joint. Will continue Vanco Zosyn at this time and follow-up with wound cultures. Patient denies any history of gout in the past.
--- NOTE | 2025-04-08 18:05 | XR_ITS ---
Exam: MRI knee without contrast, left Date and time of exam: April 08, 2025 1847 hours INDICATIONS: Redness swelling and pain involving the this week Technique: Multiple axial, coronal, and sagittal sections on the knee have been obtained. T2-Weighted sagittal, fat-suppressed images, TR 3,500, TE 62, T2 weighted coronal fat-saturated images, TR 3,500, TE 62 Proton density sagittal sections, TR 1800, TE 31. T-1 weighted coronal images, TR 524, TE 13.0 Findings: Medial meniscus anterior horn intact. Medial meniscus, body intact. Posterior horn medial meniscus intact. Lateral meniscus anterior horn intrasubstance degeneration Lateral meniscus, body is intact Posterior horn lateral meniscus is intact Anterior cruciate ligament moderate sprain. Posterior cruciate ligament appears intact. Knee effusion is evident, large and complex Soft tissue abscess prepatellar extending at least 13 cm mediolateral dimension and 2 cm AP dimension cephalocaudad dimension of these 5 cm. Quadriceps and patellar tendons appear intact. There is no evidence of tendinosis. Inflammatory change or fracture of Hoffa's fat pad is not seen. Medial patellar facet demonstrates moderate thinning. Lateral patellar facet cartilage demonstrates mild thinning. Trochlear cartilage demonstrates moderate thinning. Marrow signal adequate. Medial collateral ligament appears intact. No meniscocapsular separation is seen. Illiotibial band and fibular collateral ligament are intact. Biceps femoris tendons appear intact. Medial femoral condylar articular cartilage demonstrates moderate thinning. Lateral femoral condylar articular cartilage demonstratesmoderate thinning. Tibial plateau cartilage demonstrates moderate thinning. Impression: Significant knee effusion Soft tissue abscess prepatellar Moderate sprain anterior cruciate ligament Negative for osteomyelitis
--- NOTE | 2025-04-08 19:39 | PD.ORTHCONPN ---
Subjective Subjective Brief History: 49-year-old male who states Sosa spine penetrating injury left knee. Increased pain swelling. Went to [facility]. This placed on doxycycline and Keflex. Situation became worse. Then presented to the emergency room here at 9:00 tonight. With flexion extension. Swelling left leg. Narrative: Pain is less. Better range of motion Exam Vital Signs Temp Pulse Resp BP Pulse Ox O2 Del Method 97.6 F 70 16 129/81 95 Room Air 04/08/25 16:00 04/08/25 16:09 04/08/25 16:00 04/08/25 16:00 04/08/25 16:00 04/08/25 16:00 Blood pressure 129/81. Temp 97.6 Narrative Exam Less swelling present better active range of motion. Less edema starting to get wrinkling anterior aspect. Objective - Ortho Labs 04/08/25 04:31 04/08/25 04:31 Labs: Laboratory Results - last 24 hr 04/07/25 04/08/25 04/08/25 21:35 04:31 09:50 WBC 6.3 5.7 RBC 4.55 3.88 L Hgb 14.6 12.4 L D Hct 42.0 36.4 L MCV 92 94 MCH 32.1 32.0 MCHC 34.8 34.1 RDW Std Deviation 42.2 43.5 Plt Count 234 206 Neut % (Auto) 58 62 Lymph % (Auto) 27 21 [place] % (Auto) 8 8 Eos % (Auto) 1 1 Baso % (Auto) 1 1 Neut # (Auto) 3.6 3.5 Lymph # (Auto) 1.7 1.2 [place] # (Auto) 0.5 0.5 Eos # (Auto) 0.0 0.1 Baso # (Auto) 0.1 0.1 Immature Gran # (Auto) 0.41 H 0.41 H Absolute Nucleated RBC 0.00 0.00 Immature Gran % 7 H 7 H Neutrophils % (Manual) 64 Monocytes % (Manual) 12 H Eosinophils % (Manual) 1 Basophils % (Manual) 1 Metamyelocytes % 1 H Myelocytes % 2 H Nucleated RBC % 0 0 Lymphocytes (Manual) 19 L ESR 72 H Sodium 139 140 Potassium 3.7 4.1 Chloride 104 104 Carbon Dioxide 23.6 25.3 Anion Gap 11 11 BUN 15 16 Creatinine 0.9 0.9 Estim Creat Clear Calc 103.3 101.8 eGFR > 60 > 60 BUN/Creatinine Ratio 17 18 Glucose [address] Glu mg/dL 123 Hemoglobin A1c 5.9 Calculated Osmolality 278 280 Lactic Acid 1.1 Calcium 9.1 8.6 Corrected Calcium 9.1 8.8 Phosphorus 3.5 Magnesium 1.5 L Total Bilirubin 0.8 0.7 AST 50 H 42 H ALT 59 H 46 Alkaline Phosphatase 80 66 C-Reactive Prot, Quant 9.1 H Total Protein 7.3 6.2 Albumin 4.3 3.7 D Globulin 3.0 2.5 Albumin/Globulin Ratio 1.4 1.5 Triglycerides 164 H Cholesterol 157 LDL Cholesterol, Calc 100 HDL Cholesterol 24 L Cholesterol/HDL Ratio 6.5 Procalcitonin 0.16 Synovial Source Knee Synovial Color Yellow Synovial Appearance Hazy Synovial WBC 215 [place] [address] Synov Polynuclear WBCs 40 Synov Mononuclear WBCs 60 Synovial Specific Grav 1.010 White count 5700, synovial white cells 215. Red cells 13,000 PMNs 40%. Certainly does not appear that he has pyarthrosis responding to IV antibiotics. Assessment & Plan Assessment Additional comments: Appears to be more sympathetic send LVL fluid probably secondary to strep cellulitis to me that goes along with the edema is wrinkling in the anterior aspect of his left knee. MRI scan shows fluid in the fluid in the bursa. Fluid sent sympathetic. Will watch closely and review again in am does not appear to be toxic. Plan Expectant management. I do not think he is going to need a arthrotomy. Will watch closely. Cultures currently this a.m. then again at 9:[address] Luna. Documentation for date of: 04/08/25
[2025-04-08] MEDS: ATORVASTATIN CALCIUM 20 MG TABLET 40 MG PO (21:01)
[2025-04-09] VITALS (10 sets, daily range): BP systolic 105–130; BP diastolic 67–88; PULSE 69–86; RESP 15–16; TEMP 36.3–36.8; O2SAT 93–98
[2025-04-09] MEDS: PIPER/TAZO 3.375 GM PREMIX 3.375 GM/50 ML BAG IV ×3 (05:29→21:28)
[2025-04-09 06:35] LABS: Basophils # (Auto) 0.0 Thou/mm3 (0.0-0.2); Basophils % (Auto) 1 % (0-2.5); Eosinophils # (Auto) 0.1 Thou/mm3 (0.0-0.5); Eosinophils % (Auto) 1 % (0-10); Hematocrit 36.5 % (41.0-53.0); Hemoglobin 12.4 g/dL (13.5-16.0); Immature Granulocytes Auto 0.12 Thou/mm3 (0.00-0.00); Lymphocytes # (Auto) 0.8 Thou/mm3 (1.0-4.8); Lymphocytes % (Auto) 21 % (10-50); Mean Corpuscular HGB Conc 34.0 g/dl (31.0-37.0); Mean Corpuscular Hemoglobin 32.5 pg (25.0-35.0); Mean Corpuscular Volume 96 fL (80-100); Monocytes # (Auto) 0.3 Thou/mm3 (0.0-0.8); Monocytes % (Auto) 8 % (0-12); Neutrophils # (Auto) 2.7 Thou/mm3 (1.8-7.7); Neutrophils % (Auto) 66 % (37-80); Nucleated Red Blood Cell # 0.00 Thou/mm3 (0.00-0.00); Nucleated Red Blood Cell % 0 /100 WBC (0); Platelet Count 199 Thou/mm3 (140-440); RDW Standard Deviation 42.7 fL (35.1-43.9); Red Blood Count 3.82 Miln/mm3 (4.50-5.90); White Blood Count 4.0 Thou/mm3 (3.8-10.6)
[2025-04-09 06:46] LABS: Alanine Aminotransferase 41 U/L (10-49); Albumin, Serum 3.6 gm/dL (3.5-5.0); Albumin/Globulin Ratio 1.4 (1.2-2.2); Alkaline Phosphatase 61 U/L (46-116); Anion Gap 9 (7-16); Aspartate Amino Transferase 42 U/L (0-34); BUN/Creatinine Ratio 13 Ratio (12-20); Bilirubin,Total 0.7 mg/dL (0.3-1.2); Blood Urea Nitrogen 12 mg/dL (9-23); Calcium 8.5 mg/dL (8.3-10.6); Calcium (Corrected) 8.8 mg/dL (8.5-10.1); Carbon Dioxide 26.0 mMol/L (20.0-31.0); Chloride 106 mMol/L (98-107); Creatinine (Component) 0.9 mg/dL (0.6-1.3); Estimated Creatinine Clearance 102.3 mL/min (>60); Globulin 2.5 gm/dL (2.3-3.5); Glucose 100 mg/dL (74-106); Magnesium 1.7 mg/dL (1.6-2.6); Osmolality,Calculated 280 (275-295); Phosphorous 3.2 mg/dL (2.4-5.1); Potassium 3.8 mMol/L (3.4-5.1); Sodium 141 mMol/L (136-145); Total Protein 6.1 gm/dL (5.7-8.2); eGFR > 60 See Note
[2025-04-09 06:47] LABS: INR 1.0 (0.9-1.3); Partial Thromboplastin Time 32.2 Seconds (22.0-36.0); Prothrombin Time 10.8 Seconds (9.0-12.2)
[2025-04-09 07:51] LABS: Hepatitis C Antibody Non Reactive (Non React)
[2025-04-09 08:08] LABS: HIV (1&2) Antibody Rapid Non-Reactive
[2025-04-09] MEDS: ENOXAPARIN SOD INJ 40 MG/0.4 ML SYRINGE SC (09:20)
[2025-04-09] MEDS: PANTOPRAZOLE 40 MG TABLET PO (09:21)
[2025-04-09] MEDS: ONDANSETRON INJ 2 MG/ML INJ 2 ML 4 MG IVP (09:25)
--- NOTE | 2025-04-09 10:03 | ESPR_ITS ---
<Statement entered by Adriano Rodríguez MD - 04/09/25 17:16> Patient was seen and examined at the bedside. Patient reports to have joint pain with limited flexion due to pain. Currently awaiting on joint fluid cultures. Orthopedics is following. Continuing on Vanco and Zosyn. There was a concern for petechial rash however patient has been getting vancomycin during hospital stay from last 1 day. Therefore it will be closely monitored for now. Continuing antibiotics. All labs and orders were reviewed. I discussed and supervised with the regulatory affairs intern physician who took care of this patient. I personally saw and examined the patient. I agree with most of the assessment and plan. Disclaimer: Despite multiple revisions, due to the dictation software being used, the document bellow may not be free of grammatical errors including phonetic/typographic errors. However, this does not deter from our commitment to providing health care in the patient's best interest in mind. Plan of care discussed with attending Physician Dr. Bryan Rodríguez MD PGY-3 Documentation for date of: 04/09/25 Subjective Subjective Interval history: No overnight events. Evaluated at bedside. Pending left knee joint aspiration cultures. Improved demarcation of erythema to left knee, but does appears more swollen at the I&D site compare to yesterday. Exam Vital Signs Temp Pulse Resp BP Pulse Ox O2 Del Method 98.0 F 69 16 130/88 H 98 Room Air 04/09/25 07:53 04/09/25 09:21 04/09/25 07:53 04/09/25 09:21 04/09/25 07:53 04/09/25 07:53 Narrative Exam General: Well appearing, well nourished, in no distress. Oriented x 3, normal mood and affect . Head: Normocephalic, atraumatic, no visible or palpable masses, depressions, or scaring. Heart: No cardiomegaly or thrills; regular rate and rhythm, no murmur or gallop Lungs: Clear to auscultation and percussion. No rales, wheeze, or rhonchi Abdomen: Bowel sounds normal, no tenderness, organomegaly, masses, or hernia. Back: Spine normal without deformity or tenderness, no CVA tenderness Extremities: Erythema with swelling to left knee s/p joint aspiration, with redness spreading both proximal and distally on LLE. Improved demarcation of erythema. Musculoskeletal: Limited range of motion to left knee due to pain. Objective Labs 04/09/25 05:52 04/09/25 05:52 Labs: Laboratory Results - last 24 hr 04/08/25 04/08/25 04/09/25 04:31 09:50 05:52 WBC 4.0 RBC 3.82 L Hgb 12.4 L Hct 36.5 L MCV 96 MCH 32.5 MCHC 34.0 RDW Std Deviation 42.7 Plt Count 199 Neut % (Auto) 66 Lymph % (Auto) 21 [place] % (Auto) 8 Eos % (Auto) 1 Baso % (Auto) 1 Neut # (Auto) 2.7 Lymph # (Auto) 0.8 L [place] # (Auto) 0.3 Eos # (Auto) 0.1 Baso # (Auto) 0.0 Immature Gran # (Auto) 0.12 H Absolute Nucleated RBC 0.00 Immature Gran % 3 H Neutrophils % (Manual) 64 Monocytes % (Manual) 12 H Eosinophils % (Manual) 1 Basophils % (Manual) 1 Metamyelocytes % 1 H Myelocytes % 2 H Nucleated RBC % 0 Lymphocytes (Manual) 19 L PT 10.8 INR 1.0 APTT 32.2 Sodium 141 Potassium 3.8 Chloride 106 Carbon Dioxide 26.0 Anion Gap 9 BUN 12 Creatinine 0.9 Estim Creat Clear Calc 102.3 eGFR > 60 BUN/Creatinine Ratio 13 Glucose 100 Calculated Osmolality 280 Calcium 8.5 Corrected Calcium 8.8 Phosphorus 3.2 Magnesium 1.7 Total Bilirubin 0.7 AST 42 H ALT 41 Alkaline Phosphatase 61 Total Protein 6.1 Albumin 3.6 Globulin 2.5 Albumin/Globulin Ratio 1.4 Synovial Source Knee Synovial Color Yellow Synovial Appearance Hazy Synovial WBC 215 [place] [address] Synov Polynuclear WBCs 40 Synov Mononuclear WBCs 60 Synovial Specific Grav 1.010 Hepatitis C Antibody Non Reactive HIV 1&2 Antibody Rapid Non-Reactive Quality Measures Quality Measures VTE prophylaxis Assessment & Plan Assessment Current Active Medications: Generic Name Dose Route Start Last Admin Trade Name Freq PRN Reason Stop Dose Admin Acetaminophen 650 mg 04/08/25 01:39 Acetaminophen 325 Mg Tablet PO 05/08/25 01:38 Q6H PRN PAIN SCALE 1-3 (mild Hydrocodone Bitart/Acetaminophen 1 tab 04/08/25 01:39 04/09/25 09:20 Hydrocodone/Apap 10/325 Tab PO 04/13/25 01:38 1 tab Q4H PRN Administration PAIN SCALE 4-6 (Moderate Atorvastatin Calcium 40 mg 04/09/25 21:00 Atorvastatin Calcium 20 Mg Tablet PO 05/09/25 20:59 HS DARREN Dextrose 25 ml 04/08/25 01:39 Dextrose 50%-Water Inj 50 Ml Syringe IV 05/08/25 01:38 Q15MIN PRN BG 50-70 responsive npo pt Dextrose 50 ml 04/08/25 01:39 Dextrose 50%-Water Inj 50 Ml Syringe IV 05/08/25 01:38 Q15MIN PRN BG <50 OR BG <70 & pt unresponsive Enoxaparin Sodium 40 mg 04/09/25 09:00 04/09/25 09:20 Enoxaparin Sod Inj 40 Mg/0.4 Ml Syringe SC 04/23/25 08:59 40 mg QDAY DARREN Administration Glucagon 1 mg 04/08/25 01:39 Glucagon Inj 1 Mg Vial IM Q15MIN PRN BG <70, and no IV access Piperacillin/Tazobactam/Dextrose 3.375 gm in 50 mls @ 12.5 mls/hr 04/08/25 06:00 04/09/25 05:29 Zosyn IV 04/15/25 05:59 12.5 mls/hr Q8HR DARREN Administration Vancomycin HCl 200 mls @ 120 mls/hr 04/08/25 10:00 04/08/25 21:01 Vancomycin/Water 1gm Ivpb IV 04/15/25 09:59 120 mls/hr BID@1000,2200 DARREN Administration Lisinopril 20 mg 04/09/25 09:00 04/09/25 09:21 Lisinopril 20 Mg Tablet PO 05/09/25 08:59 20 mg QDAY DARREN Administration Morphine Sulfate 1 mg 04/08/25 01:39 04/08/25 04:27 Morphine Sulf Inj 10 Mg/Ml Vial IVP 04/13/25 01:38 1 mg Q6H PRN Administration PAIN SCALE 7-10 (Severe Ondansetron HCl 4 mg 04/08/25 01:39 04/09/25 09:25 Ondansetron Inj 2 Mg/Ml Inj 2 Ml IVP 05/08/25 01:38 4 mg Q6H PRN Administration NAUSEA OR VOMITING Protocol Pantoprazole Sodium 40 mg 04/09/25 09:00 04/09/25 09:21 Pantoprazole 40 Mg Tablet PO 05/09/25 08:59 40 mg QDAY DARREN Administration Pharmacy Consult 1 each 04/08/25 09:00 Vancomycin Pharmacy To Dose 1 Each Each IV 05/08/25 08:59 QDAY PRN CONSULT Sennosides 1 tab 04/08/25 01:39 Senna Tablet PO 05/08/25 01:38 QDAY PRN constipation Protocol Plan 49-year-old male with past medical history of prediabetes, hypertension, obesity presenting to the ED with left knee pain will be admitted for management of septic arthritis with IV antibiotics and IV fluids resuscitation along with ID consultation and orthopedic consultation for proper management. Continue patient on IV Zosyn and IV Vanco per ortho recommendation. Pending joint aspiration cultures/gram stain/cytology. #Septic arthritis As stated in HPI, had a foreign object because he injury to his left knee which has progressively worsened Patient failed outpatient oral antibiotic therapy On examination, patient's left leg is erythematous and swollen; currently bandaged after attempt at By Dr. Nash Patient does not have elevated WBC but did present with low-grade fever and tachycardia Knee x-ray shows prepatellar soft tissue prominence venous Doppler study is negative for any DVT MR left knee non con shows significant knee effusion, soft tissue abscess prepatellar, moderate sprain anterior cruciate ligament, negative for osteomyelitis. Plan: - Continue patient on IV Zosyn and IV Vanco per ortho recommendation. - MR left knee non con shows non con shows significant knee effusion, soft tissue abscess prepatellar, moderate sprain anterior cruciate ligament, negative for osteomyelitis. - Dr Eaton, ID, consulted : chlamydia neg. gonorrhoeae neg. Trich neg. Hep C neg , HIV 1&2 neg. Pending synovial fluid cultures and cocci serology. - resume regular diet - Multimodal pain management - Will hold off on anticoagulation at this time #Elevated liver enzymes #Obesity Likely related to obesity, patient has BMI of 30.7 Occasional alcohol use versus metabolic associated steatotic liver disease - Monitor with morning labs - Consider liver ultrasound - Consider obtaining hepatitis panel - Outpt follow up with PCP #Hypertension #Hyperlipidemia #Hypertriglycerinemia #Prediabetes - Chronic medical conditions - Outpt follow up with PCP - Continue home medication lisinopril 20mg and atorvastatin 40mg #Hypomagnesia initial Mg 1.5 - Mg 4g x 1 - Daily labs, replete if <2 Dispo: Tele DVT prophylaxis: Lovenox 40mg GI prophylaxis: Protonix 40mg Diet: Regular diet Lines: Peripheral IV Code status: Full code Case discussed with my senior resident Dr. Rodríguez Case discussed with my attending Dr. Bryan Duggan DO PGY 1 Attending Provider Attestation/Addendum Susie Alvarez DO, attest that I was physically present for the lezama portions of the service and evaluated the patient with the resident and I reviewed and discussed the case with the resident and agree with the resident's findings and plans of care as documented above Patient seen and eval this a.m. He continues to have pain in his left knee. He has some crusting over wounds over his patellar region. He has significant erythema and edema of the knee. However, he appears to have improved range of motion of about 30 degree flexion. Will follow-up with cultures from the aspiration. Will continue Vanco and Zosyn at this time. Will follow with ID recommendations.
[2025-04-09 10:47] LABS: Vancomycin,Trough 12.7 mcg/mL (5.0-10.0)
[2025-04-09] MEDS: VANCOMYCIN/D5W 1,250 MG IVPB 250 ML 120 MG IV ×2 (11:33→21:01)
[2025-04-09 13:01] LABS: Cocci Serology, IgM Negative (Negative)
--- NOTE | 2025-04-09 13:31 | PC.SS ---
SS follow up note; Cultures pending, Patient is on IV ABX. Patient will discharge home when medically cleared.
[2025-04-09 15:33] LABS: Chlamydia trachomatis PCR Negative (Not Detect); Neisseria Gonorrhoeae DNA PCR Negative (Not Detect); Trichomonas Negative (Negative)
--- NOTE | 2025-04-09 17:54 | CONPN_ITS ---
Subjective Subjective Brief History: 49-year-old male who states Sosa spine penetrating injury left knee. Increased pain swelling. Went to [facility]. This placed on doxycycline and Keflex. Situation became worse. Then presented to the emergency room here at 9:00 tonight. With flexion extension. Swelling left leg. Narrative: Less pain, better range of motion Exam Vital Signs Temp Pulse Resp BP Pulse Ox O2 Del Method 98.2 F 72 16 113/69 97 Room Air 04/09/25 16:00 04/09/25 16:17 04/09/25 16:00 04/09/25 16:00 04/09/25 16:00 04/09/25 16:00 Temp 98.2 Narrative Exam Considerably less swelling left knee. Redness less. Range of motion yesterday less than 25 degrees today just over 90 degrees Effusion less Objective - Ortho Labs 04/09/25 05:52 04/09/25 05:52 Labs: Laboratory Results - last 24 hr 04/09/25 04/09/25 04/09/25 05:52 09:49 10:15 WBC 4.0 RBC 3.82 L Hgb 12.4 L Hct 36.5 L MCV 96 MCH 32.5 MCHC 34.0 RDW Std Deviation 42.7 Plt Count 199 Neut % (Auto) 66 Lymph % (Auto) 21 [place] % (Auto) 8 Eos % (Auto) 1 Baso % (Auto) 1 Neut # (Auto) 2.7 Lymph # (Auto) 0.8 L [place] # (Auto) 0.3 Eos # (Auto) 0.1 Baso # (Auto) 0.0 Immature Gran # (Auto) 0.12 H Absolute Nucleated RBC 0.00 Immature Gran % 3 H Nucleated RBC % 0 PT 10.8 INR 1.0 APTT 32.2 Sodium 141 Potassium 3.8 Chloride 106 Carbon Dioxide 26.0 Anion Gap 9 BUN 12 Creatinine 0.9 Estim Creat Clear Calc 102.3 eGFR > 60 BUN/Creatinine Ratio 13 Glucose 100 Calculated Osmolality 280 Calcium 8.5 Corrected Calcium 8.8 Phosphorus 3.2 Magnesium 1.7 Total Bilirubin 0.7 AST 42 H ALT 41 Alkaline Phosphatase 61 Total Protein 6.1 Albumin 3.6 Globulin 2.5 Albumin/Globulin Ratio 1.4 Vancomycin Trough 12.7 H Chlam trachomat DNA PCR Negative Coccidioides IgM Ab Negative Hepatitis C Antibody Non Reactive HIV 1&2 Antibody Rapid Non-Reactive N.gonorrhoeae DNA (PCR) Negative Trichomonas DNA Probe Negative White count 4000 special studies including chlamydia, cocci, hep C, HIV, GC, trichomonas either negative or nonreactive Assessment & Plan Assessment Additional comments: Strep cellulitis with what appears to be an impetiginous component. Swelling prepatellar bursa down dramatically. Responding nicely Plan This is his second bite at the [employer] I would certainly and very strongly recommend that he be carried through the weekend so we can evaluate his effusion bursa response to antibiotic and to watch his confluent barely visible macular rash. Hospitalist following that closely Documentation for date of: 04/09/25
[2025-04-09] MEDS: ATORVASTATIN CALCIUM 20 MG TABLET 40 MG PO (20:59)
--- NOTE | 2025-04-09 21:15 | PC.NURSE ---
Pt medicated with [employer] as ordered for c/o pain.
[2025-04-10] VITALS (9 sets, daily range): BP systolic 96–112; BP diastolic 56–74; PULSE 65–80; RESP 13–20; TEMP 36.1–36.7; O2SAT 93–97
[2025-04-10] MEDS: PIPER/TAZO 3.375 GM PREMIX 3.375 GM/50 ML BAG IV (05:34)
[2025-04-10 06:28] LABS: Basophils # (Auto) 0.0 Thou/mm3 (0.0-0.2); Basophils % (Auto) 1 % (0-2.5); Eosinophils # (Auto) 0.1 Thou/mm3 (0.0-0.5); Eosinophils % (Auto) 2 % (0-10); Hematocrit 35.1 % (41.0-53.0); Hemoglobin 11.5 g/dL (13.5-16.0); Immature Granulocytes Auto 0.06 Thou/mm3 (0.00-0.00); Lymphocytes # (Auto) 0.8 Thou/mm3 (1.0-4.8); Lymphocytes % (Auto) 24 % (10-50); Mean Corpuscular HGB Conc 32.8 g/dl (31.0-37.0); Mean Corpuscular Hemoglobin 32.0 pg (25.0-35.0); Mean Corpuscular Volume 98 fL (80-100); Monocytes # (Auto) 0.3 Thou/mm3 (0.0-0.8); Monocytes % (Auto) 9 % (0-12); Neutrophils # (Auto) 2.1 Thou/mm3 (1.8-7.7); Neutrophils % (Auto) 62 % (37-80); Nucleated Red Blood Cell # 0.00 Thou/mm3 (0.00-0.00); Nucleated Red Blood Cell % 0 /100 WBC (0); Platelet Count 203 Thou/mm3 (140-440); RDW Standard Deviation 43.9 fL (35.1-43.9); Red Blood Count 3.59 Miln/mm3 (4.50-5.90); White Blood Count 3.4 Thou/mm3 (3.8-10.6)
--- NOTE | 2025-04-10 06:43 | ESPR_ITS ---
<Statement entered by Aleksandr Orellana MD - 04/14/25 08:02> I reviewed above note and agree with findings and plans. I have also personally examined the patient with medicine team and went over assessment and plan with medical team including internet programmer and resident physician. <Statement entered by Adriano Rodríguez MD - 04/10/25 14:24> Patient was seen and examined at the bedside. No acute overnight events were reported. Patient is able to flex his knee more than yesterday. ID recommended to place a PICC line and continue IV 2 g Rocephin and p.o. doxycycline 100 mg twice daily until May 08 with weekly CBC, renal panel until the end of the treatment. Orthopedics recommended to keep the patient over the weekend due to pain and swelling. Home health orders were placed. All labs and orders were reviewed. I discussed and supervised with the internet programmer physician who took care of this patient. I personally saw and examined the patient. I agree with most of the assessment and plan. Disclaimer: Despite multiple revisions, due to the dictation software being used, the document bellow may not be free of grammatical errors including phonetic/typographic errors. However, this does not deter from our commitment to providing health care in the patient's best interest in mind. Plan of care discussed with attending Physician Dr. Reyna Rodríguez MD PGY-3 Documentation for date of: 04/10/25 Subjective Subjective Interval history: No acute events overnight pt able to ambulate to toilet, with moderate pain per ortho, no surgery indicated at this time per ID, reccomend PICC with IV CTX 2 gm and PO doxy 100mg BID for 4 wk course (04/10-05/08) with weakly cbc, and renal panel till completion of abx course. Exam Vital Signs Temp Pulse Resp BP Pulse Ox O2 Del Method 97.8 F 74 13 105/64 93 L Room Air 04/10/25 04:00 04/10/25 04:06 04/10/25 04:00 04/10/25 04:00 04/10/25 04:00 04/10/25 04:00 Narrative Exam General: Well appearing, well nourished, in no distress. Oriented x 3, normal mood and affect . sitting at the edge of the bed, Head: Normocephalic, atraumatic, no visible or palpable masses, depressions, or scaring. Heart: regular rate and rhythm, no murmur or gallop Lungs: Clear to auscultation and percussion. No rales, wheeze, or rhonchi Abdomen: Bowel sounds normal, no tenderness Back: Spine normal without deformity or tenderness, Extremities: LLE with excoriations healing on anterior patellar surface. Erythema and mildly violacious at knee, and proximally and distally. no puralent drainage, tender to palpation, 04/26 Musculoskeletal: range of motion is improved from prior, sitting with LLE flexed at 90 degrees and able to range with active and passive motion to full extention at knee Objective Labs 04/10/25 05:36 04/10/25 05:36 Labs: Laboratory Results - last 24 hr 04/09/25 04/09/25 04/09/25 05:52 09:49 10:15 WBC 4.0 RBC 3.82 L Hgb 12.4 L Hct 36.5 L MCV 96 MCH 32.5 MCHC 34.0 RDW Std Deviation 42.7 Plt Count 199 Neut % (Auto) 66 Lymph % (Auto) 21 [place] % (Auto) 8 Eos % (Auto) 1 Baso % (Auto) 1 Neut # (Auto) 2.7 Lymph # (Auto) 0.8 L [place] # (Auto) 0.3 Eos # (Auto) 0.1 Baso # (Auto) 0.0 Immature Gran # (Auto) 0.12 H Absolute Nucleated RBC 0.00 Immature Gran % 3 H Nucleated RBC % 0 PT 10.8 INR 1.0 APTT 32.2 Sodium 141 Potassium 3.8 Chloride 106 Carbon Dioxide 26.0 Anion Gap 9 BUN 12 Creatinine 0.9 Estim Creat Clear Calc 102.3 eGFR > 60 BUN/Creatinine Ratio 13 Glucose 100 Calculated Osmolality 280 Calcium 8.5 Corrected Calcium 8.8 Phosphorus 3.2 Magnesium 1.7 Total Bilirubin 0.7 AST 42 H ALT 41 Alkaline Phosphatase 61 Total Protein 6.1 Albumin 3.6 Globulin 2.5 Albumin/Globulin Ratio 1.4 Vancomycin Trough 12.7 H Chlam trachomat DNA PCR Negative Coccidioides IgM Ab Negative Hepatitis C Antibody Non Reactive HIV 1&2 Antibody Rapid Non-Reactive N.gonorrhoeae DNA (PCR) Negative Trichomonas DNA Probe Negative Quality Measures Quality Measures VTE prophylaxis Assessment & Plan Assessment Current Active Medications: Generic Name Dose Route Start Last Admin Trade Name Freq PRN Reason Stop Dose Admin Acetaminophen 650 mg 04/08/25 01:39 Acetaminophen 325 Mg Tablet PO 05/08/25 01:38 Q6H PRN PAIN SCALE 1-3 (mild Hydrocodone Bitart/Acetaminophen 1 tab 04/08/25 01:39 04/09/25 21:03 Hydrocodone/Apap 10/325 Tab PO 04/13/25 01:38 1 tab Q4H PRN Administration PAIN SCALE 4-6 (Moderate Atorvastatin Calcium 40 mg 04/09/25 21:00 04/09/25 20:59 Atorvastatin Calcium 20 Mg Tablet PO 05/09/25 20:59 40 mg HS DARREN Administration Dextrose 25 ml 04/08/25 01:39 Dextrose 50%-Water Inj 50 Ml Syringe IV 05/08/25 01:38 Q15MIN PRN BG 50-70 responsive npo pt Dextrose 50 ml 04/08/25 01:39 Dextrose 50%-Water Inj 50 Ml Syringe IV 05/08/25 01:38 Q15MIN PRN BG <50 OR BG <70 & pt unresponsive Enoxaparin Sodium 40 mg 04/09/25 09:00 04/09/25 09:20 Enoxaparin Sod Inj 40 Mg/0.4 Ml Syringe SC 04/23/25 08:59 40 mg QDAY DARREN Administration Glucagon 1 mg 04/08/25 01:39 Glucagon Inj 1 Mg Vial IM Q15MIN PRN BG <70, and no IV access Piperacillin/Tazobactam/Dextrose 3.375 gm in 50 mls @ 12.5 mls/hr 04/08/25 06:00 04/10/25 05:34 Zosyn IV 04/15/25 05:59 12.5 mls/hr Q8HR DARREN Administration Vancomycin HCl/Dextrose 250 mls @ 120 mls/hr 04/09/25 11:15 04/09/25 21:01 Vancomycin/D5w 1,250 Mg Ivpb IV 04/16/25 11:14 120 mls/hr BID@1000,2200 DARREN Administration Lisinopril 20 mg 04/09/25 09:00 04/09/25 09:21 Lisinopril 20 Mg Tablet PO 05/09/25 08:59 20 mg QDAY DARREN Administration Morphine Sulfate 1 mg 04/08/25 01:39 04/08/25 04:27 Morphine Sulf Inj 10 Mg/Ml Vial IVP 04/13/25 01:38 1 mg Q6H PRN Administration PAIN SCALE 7-10 (Severe Ondansetron HCl 4 mg 04/08/25 01:39 04/09/25 09:25 Ondansetron Inj 2 Mg/Ml Inj 2 Ml IVP 05/08/25 01:38 4 mg Q6H PRN Administration NAUSEA OR VOMITING Protocol Pantoprazole Sodium 40 mg 04/09/25 09:00 04/09/25 09:21 Pantoprazole 40 Mg Tablet PO 05/09/25 08:59 40 mg QDAY DARREN Administration Pharmacy Consult 1 each 04/08/25 09:00 Vancomycin Pharmacy To Dose 1 Each Each IV 05/08/25 08:59 QDAY PRN CONSULT Sennosides 1 tab 04/08/25 01:39 Senna Tablet PO 05/08/25 01:38 QDAY PRN constipation Protocol Plan 49-year-old male with past medical history of prediabetes, hypertension, obesity presenting to the ED with left knee pain will be admitted for management of septic arthritis with IV antibiotics and IV fluids resuscitation along with ID consultation and orthopedic consultation for management. pending joint aspiration cultures, d/c vanc and zosyn per ID recs, plan to do 4 wks ctx 2gm and doxy 100 bid. PICC line . plan for dispo home with . #Septic arthritis Patient failed outpatient oral antibiotic therapy, per odilia On examination, patient's left leg is erythematous and swollen; currently bandaged after attempt at By Dr. Nash Patient does not have elevated WBC but did present with low-grade fever and tachycardia, ctm for systemic signs of infxn improving ROM on exam, able to ambulate. Dx -CBC -Knee x-ray shows prepatellar soft tissue prominence -venous Doppler study is negative for any DVT -MR left knee non con shows significant knee effusion, soft tissue abscess prepatellar, moderate sprain anterior cruciate ligament, negative for osteomyelitis -Dr Eaton, ID, consulted : chlamydia neg. gonorrhoeae neg. Trich neg. HIV 1&2 neg. -Pending synovial fluid cultures -cocci serology negative Tx - d/c vanc and zosyn - PICC line for IV abx pending - start IV CTX 2gm and doxy 100 mg BID , 4 wk course (04/10-05/08) per ID recs, f/u with weekly cbc, renal panel. - Multimodal pain management: NORCO 10-325 q4hr prn , morpheine 1mg q6hr prn #Transaminitis resolving query related to obesity, patient has BMI of 30.7, consider nonalcoholic fatty liver disease, Occasional alcohol use versus metabolic associated steatotic liver disease Dx - Daily LFTs - Hep panel negative Tx - Outpt follow up with PCP #Hypertension - lisinopril 20mg #Hyperlipidemia #Hypertriglycerinemia - Atorvastatin 40 mg qd #Prediabetes Dx - A1c 5.9 - Outpt follow up with PCP #Electrolyte abnormalities #Hypomagnesia dx - daily CMP, Mg and Phos tx - replete as needed - Mg>2, K >4 Dispo: plan for discharge home with HH, given IV abx needs. weekly lab follow up when outpatient DVT prophylaxis: Lovenox 40mg GI prophylaxis: Protonix 40mg Diet: Regular diet Lines: Peripheral IV, pending PICC line Code status: Full code Case discussed with my senior resident Dr. Rodríguez Case discussed with my attending Dr. Reyna Naqvi MD PGY-1
[2025-04-10 07:17] LABS: Alanine Aminotransferase 38 U/L (10-49); Albumin, Serum 3.5 gm/dL (3.5-5.0); Albumin/Globulin Ratio 1.4 (1.2-2.2); Alkaline Phosphatase 59 U/L (46-116); Anion Gap 10 (7-16); Aspartate Amino Transferase 44 U/L (0-34); BUN/Creatinine Ratio 10 Ratio (12-20); Bilirubin,Total 0.6 mg/dL (0.3-1.2); Blood Urea Nitrogen 10 mg/dL (9-23); Calcium 8.7 mg/dL (8.3-10.6); Calcium (Corrected) 9.1 mg/dL (8.5-10.1); Carbon Dioxide 28.2 mMol/L (20.0-31.0); Chloride 104 mMol/L (98-107); Creatinine (Component) 1.0 mg/dL (0.6-1.3); Estimated Creatinine Clearance 92.1 mL/min (>60); Globulin 2.5 gm/dL (2.3-3.5); Glucose 103 mg/dL (74-106); Magnesium 1.6 mg/dL (1.6-2.6); Osmolality,Calculated 282 (275-295); Phosphorous 3.9 mg/dL (2.4-5.1); Potassium 3.9 mMol/L (3.4-5.1); Sodium 142 mMol/L (136-145); Total Protein 6.0 gm/dL (5.7-8.2); eGFR > 60 See Note
--- NOTE | 2025-04-10 07:46 | ESCONSULT_ITS ---
RE: JACLYN MOORE : 1975 DATE OF CONSULTATION: 04/08/2025 DATE OF CONSULTATION: 04/08/2025 REFERRING PHYSICIAN: Dr. Cross. REASON FOR CONSULTATION: Abnormal urine and joint fluid and left leg swelling in an otherwise healthy 49-year-old man. HISTORY OF PRESENT ILLNESS: The patient is an unfortunate man admitted the other day for left leg swelling. There is no DVT on ultrasound and he does have what appears to be some redness of the left leg and immobility of the left knee. Aspiration of the left knee is fairly unimpressive with relatively few white cells noted. He is heavyset, but not unusually obese and is mildly obese . Cultures are pending and so far are negative. PAST MEDICAL HISTORY: Significant for hypertension and borderline diabetes. SURGICAL HISTORY: None. ALLERGIES: NONE NOTED. IMMUNIZATIONS: Last tetanus is not known. He does not take a flu shot every year. He has had 3 COVID vaccines and does not recall pneumococcal vaccination. FAMILY HISTORY: Unremarkable. SOCIAL HISTORY: He lives with family and relatives. I did not ask. I did not ask him about his work history. PHYSICAL EXAMINATION: The patient has left leg swelling and redness. RECOMMENDATIONS: He is on vancomycin and Zosyn. if bc are neg we can consider oral options, if cultures are negative by 48 hours, we can probably give him doxycycline and Keflex . I will check on him before then. If there is any question, you can text me. DT: 14:51:12 TT: 16:11:00 Ref: [id number] - TID: [id number] [facility]
[2025-04-10] MEDS: PANTOPRAZOLE 40 MG TABLET PO (09:08)
[2025-04-10] MEDS: ENOXAPARIN SOD INJ 40 MG/0.4 ML SYRINGE SC (09:09)
[2025-04-10] MEDS: Magnesium Sulfate 4 GM Ivpb 4 GM/50 ML BAG IV (09:10)
[2025-04-10] MEDS: VANCOMYCIN/WATER 1250 MG IVPB 250 ML 120 MG IV (09:40)
--- NOTE | 2025-04-10 09:48 | PC.SS ---
SS follow up note; note; ID and Cultures pending. Patient will discharge home when medically cleared.
--- NOTE | 2025-04-10 10:22 | ESPR_ITS ---
Subjective Subjective Interval history: cx and stains neg so rx is empirical Exam Vital Signs Temp Pulse Resp BP Pulse Ox O2 Del Method 97.3 F 75 20 112/62 94 L Room Air 04/10/25 08:00 04/10/25 09:08 04/10/25 08:00 04/10/25 09:08 04/10/25 08:00 04/10/25 08:00 Narrative Exam moving a bit better today, cx remain neg. d/w dr frank wed pm. urine gc/chlam neg. Objective - Internal Medicine Labs 04/10/25 05:36 04/10/25 05:36 Labs: Laboratory Results - last 24 hr 04/09/25 04/09/25 04/09/25 05:52 09:49 10:15 WBC RBC Hgb Hct MCV MCH MCHC RDW Std Deviation Plt Count Neut % (Auto) Lymph % (Auto) [place] % (Auto) Eos % (Auto) Baso % (Auto) Neut # (Auto) Lymph # (Auto) [place] # (Auto) Eos # (Auto) Baso # (Auto) Immature Gran # (Auto) Absolute Nucleated RBC Immature Gran % Nucleated RBC % Sodium Potassium Chloride Carbon Dioxide Anion Gap BUN Creatinine Estim Creat Clear Calc eGFR BUN/Creatinine Ratio Glucose Calculated Osmolality Calcium Corrected Calcium Phosphorus Magnesium Total Bilirubin AST ALT Alkaline Phosphatase Total Protein Albumin Globulin Albumin/Globulin Ratio Vancomycin Trough 12.7 H Chlam trachomat DNA PCR Negative Coccidioides IgM Ab Negative N.gonorrhoeae DNA (PCR) Negative Trichomonas DNA Probe Negative 04/10/25 05:36 WBC 3.4 L RBC 3.59 L Hgb 11.5 L Hct 35.1 L MCV 98 MCH 32.0 MCHC 32.8 RDW Std Deviation 43.9 Plt Count 203 Neut % (Auto) 62 Lymph % (Auto) 24 [place] % (Auto) 9 Eos % (Auto) 2 Baso % (Auto) 1 Neut # (Auto) 2.1 Lymph # (Auto) 0.8 L [place] # (Auto) 0.3 Eos # (Auto) 0.1 Baso # (Auto) 0.0 Immature Gran # (Auto) 0.06 H Absolute Nucleated RBC 0.00 Immature Gran % 2 H Nucleated RBC % 0 Sodium 142 Potassium 3.9 Chloride 104 Carbon Dioxide 28.2 Anion Gap 10 BUN 10 Creatinine 1.0 Estim Creat Clear Calc 92.1 eGFR > 60 BUN/Creatinine Ratio 10 L Glucose 103 Calculated Osmolality 282 Calcium 8.7 Corrected Calcium 9.1 Phosphorus 3.9 Magnesium 1.6 Total Bilirubin 0.6 AST 44 H ALT 38 Alkaline Phosphatase 59 Total Protein 6.0 Albumin 3.5 Globulin 2.5 Albumin/Globulin Ratio 1.4 Vancomycin Trough Chlam trachomat DNA PCR Coccidioides IgM Ab N.gonorrhoeae DNA (PCR) Trichomonas DNA Probe Assessment & Plan A&P Narrative L leg swelling and L leg and knee pain with unimpressive us and joint aspirate but impressive exam cx neg, so empiric rx should be 4 weeks of rocephin 2 gm iv daily and doxy 100 po bid with weekly cbc, renal panel, esr and line removal at end of rx will see again prn. home likely sunday as you will need a line and approval for senior care rx . hiv and hep c neg. Time Spent With Patient Time: Total time spent is greater than 50% in coordination of care (as documented) at patient's floor/unit and/or counseling patient:
[2025-04-10] MEDS: DOXYCYCLINE 100 MG TABLET PO ×2 (11:24→20:58)
[2025-04-10 13:34] LABS: Cocci Serology, IgG Negative (Negative)
--- NOTE | 2025-04-10 14:31 | PC.SS ---
SS was informed that patient will need IV ABX. SS met with patient at bedside to discuss who will be administering IV ABX. Patient reported that his will be the one to administer the medication. No HH preference.
--- NOTE | 2025-04-10 18:03 | PC.CM ---
Patient will need IV abx with home health. Patient does not have a PICC line at this time. Order has been placed to put in PICC line. I sent referal to infusion company and to home health agencies.
[2025-04-10] MEDS: cefTRIAXone 2 GM in SODIUM CHLORIDE 0.9% (Popper) 50 ML IV (19:27)
[2025-04-10] MEDS: ATORVASTATIN CALCIUM 20 MG TABLET 40 MG PO (20:58)
--- NOTE | 2025-04-10 21:43 | PD.ORTHCONPN ---
Subjective Subjective Brief History: 49-year-old male who states Sosa spine penetrating injury left knee. Increased pain swelling. Went to [facility]. This placed on doxycycline and Keflex. Situation became worse. Then presented to the emergency room here at 9:00 tonight. With flexion extension. Swelling left leg. Narrative: Patient feeling better today. But not a lot better Exam Vital Signs Temp Pulse Resp BP Pulse Ox O2 Del Method 98.1 F 79 19 102/62 95 Room Air 04/10/25 20:00 04/10/25 20:00 04/10/25 20:00 04/10/25 20:00 04/10/25 20:00 04/10/25 20:00 Temp 98.1 Narrative Exam Patient has less swelling about the left knee Was fluid prepatellar bursa. Does have palpable effusion left knee As I was evaluating the left knee I looked at his right knee. Marked effusion. Valgus deformity. No redness. Good range of motion Objective - Ortho Labs 04/10/25 05:36 04/10/25 05:36 Labs: Laboratory Results - last 24 hr 04/09/25 04/10/25 05:52 05:36 WBC 3.4 L RBC 3.59 L Hgb 11.5 L Hct 35.1 L MCV 98 MCH 32.0 MCHC 32.8 RDW Std Deviation 43.9 Plt Count 203 Neut % (Auto) 62 Lymph % (Auto) 24 [place] % (Auto) 9 Eos % (Auto) 2 Baso % (Auto) 1 Neut # (Auto) 2.1 Lymph # (Auto) 0.8 L [place] # (Auto) 0.3 Eos # (Auto) 0.1 Baso # (Auto) 0.0 Immature Gran # (Auto) 0.06 H Absolute Nucleated RBC 0.00 Immature Gran % 2 H Nucleated RBC % 0 Sodium 142 Potassium 3.9 Chloride 104 Carbon Dioxide 28.2 Anion Gap 10 BUN 10 Creatinine 1.0 Estim Creat Clear Calc 92.1 eGFR > 60 BUN/Creatinine Ratio 10 L Glucose 103 Calculated Osmolality 282 Calcium 8.7 Corrected Calcium 9.1 Phosphorus 3.9 Magnesium 1.6 Total Bilirubin 0.6 AST 44 H ALT 38 Alkaline Phosphatase 59 Total Protein 6.0 Albumin 3.5 Globulin 2.5 Albumin/Globulin Ratio 1.4 Coccidioides IgG Ab Negative White count 3400 Assessment & Plan Assessment Additional comments: 1. Infected left knee cellulitic in nature. Sympathetic effusion left knee. Sympathetic prepatellar bursa left knee 2.Skin culture negative first knee culture done 04-08 still is pending. Culture from Dr. Fulton's aspiration pending. Plan 2 view right knee. Peers to be posttraumatic arthritis. I want to make sure we do not overlook right knee. Documentation for date of: 04/10/25
--- NOTE | 2025-04-10 21:50 | XR_ITS ---
Examination: Knee, right , 3 views Technique: Knee AP, lateral, oblique 3 views Date and time of exam: April 10, 2025, 10:22 PM INDICATIONS: Knee pain beginning 3 days ago. FINDINGS: Advanced tricompartment osteoarthritis. No fracture. Moderate knee effusion IMPRESSION: Advanced tricompartment osteoarthritis
--- NOTE | 2025-04-10 21:51 | XR_ITS ---
Examination: Knee, left , 3 views Technique: Knee AP, lateral, oblique 3 views Date and time of exam: April 10, 2025 2222 hours INDICATIONS: Left knee pain beginning 3 days ago. FINDINGS: No fracture or dislocation Prepatellar soft tissue prominence Moderate knee effusion IMPRESSION: No acute fracture
[2025-04-11] VITALS (7 sets, daily range): BP systolic 100–120; BP diastolic 59–81; PULSE 71–84; RESP 15–18; TEMP 36.3–36.9; O2SAT 90–95; BMI 29.0; BMI 28.8
[2025-04-11 05:33] LABS: Basophils # (Auto) 0.0 Thou/mm3 (0.0-0.2); Basophils % (Auto) 1 % (0-2.5); Eosinophils # (Auto) 0.1 Thou/mm3 (0.0-0.5); Eosinophils % (Auto) 2 % (0-10); Hematocrit 34.8 % (41.0-53.0); Hemoglobin 11.6 g/dL (13.5-16.0); Immature Granulocytes Auto 0.03 Thou/mm3 (0.00-0.00); Lymphocytes # (Auto) 1.1 Thou/mm3 (1.0-4.8); Lymphocytes % (Auto) 29 % (10-50); Mean Corpuscular HGB Conc 33.3 g/dl (31.0-37.0); Mean Corpuscular Hemoglobin 32.2 pg (25.0-35.0); Mean Corpuscular Volume 97 fL (80-100); Monocytes # (Auto) 0.4 Thou/mm3 (0.0-0.8); Monocytes % (Auto) 11 % (0-12); Neutrophils # (Auto) 2.2 Thou/mm3 (1.8-7.7); Neutrophils % (Auto) 57 % (37-80); Nucleated Red Blood Cell # 0.00 Thou/mm3 (0.00-0.00); Nucleated Red Blood Cell % 0 /100 WBC (0); Platelet Count 221 Thou/mm3 (140-440); RDW Standard Deviation 43.0 fL (35.1-43.9); Red Blood Count 3.60 Miln/mm3 (4.50-5.90); White Blood Count 3.8 Thou/mm3 (3.8-10.6)
[2025-04-11 06:03] LABS: Alanine Aminotransferase 59 U/L (10-49); Albumin, Serum 3.6 gm/dL (3.5-5.0); Albumin/Globulin Ratio 1.3 (1.2-2.2); Alkaline Phosphatase 61 U/L (46-116); Anion Gap 10 (7-16); Aspartate Amino Transferase 75 U/L (0-34); BUN/Creatinine Ratio 9 Ratio (12-20); Bilirubin,Total 0.5 mg/dL (0.3-1.2); Blood Urea Nitrogen 8 mg/dL (9-23); Calcium 8.9 mg/dL (8.3-10.6); Calcium (Corrected) 9.2 mg/dL (8.5-10.1); Carbon Dioxide 25.7 mMol/L (20.0-31.0); Chloride 107 mMol/L (98-107); Creatinine (Component) 0.9 mg/dL (0.6-1.3); Estimated Creatinine Clearance 100.6 mL/min (>60); Globulin 2.7 gm/dL (2.3-3.5); Glucose 107 mg/dL (74-106); Magnesium 2.0 mg/dL (1.6-2.6); Osmolality,Calculated 283 (275-295); Phosphorous 3.0 mg/dL (2.4-5.1); Potassium 3.9 mMol/L (3.4-5.1); Sodium 143 mMol/L (136-145); Total Protein 6.3 gm/dL (5.7-8.2); eGFR > 60 See Note
[2025-04-11] MEDS: DOXYCYCLINE 100 MG TABLET PO (09:39)
[2025-04-11] MEDS: PANTOPRAZOLE 40 MG TABLET PO (09:40)
[2025-04-11] MEDS: ENOXAPARIN SOD INJ 40 MG/0.4 ML SYRINGE SC (09:42)
[2025-04-11] MEDS: cefTRIAXone/D5w 2gm 2 GM/50 ML BAG IV (09:42)
[2025-04-11] MEDS: ONDANSETRON INJ 2 MG/ML INJ 2 ML 4 MG IVP (09:42)
--- NOTE | 2025-04-11 11:14 | ESPR_ITS ---
<Statement entered by Aleksandr Orellana MD - 04/17/25 07:31> I reviewed above note and agree with findings and plans. I have also personally examined the patient with medicine team and went over assessment and plan with medical team including chemical engineering intern and resident physician. <Statement entered by Adriano Rodríguez MD - 04/11/25 16:36> Patient was seen and examined at the bedside. No acute overnight events were reported. Patient has improvement in his left knee pain. Ultrasound of the left knee was ordered to evaluate effusion. Orthopedics following the case. Patient will likely get PICC line on Sunday after final wound cultures. Continuing with 2 g Rocephin and doxycycline for now. All labs and orders were reviewed. Ultrasound of left knee showed prepatellar abscess will notify ortho for further recs. I discussed and supervised with the chemical engineering intern physician who took care of this patient. I personally saw and examined the patient. I agree with most of the assessment and plan. Disclaimer: Despite multiple revisions, due to the dictation software being used, the document bellow may not be free of grammatical errors including phonetic/typographic errors. However, this does not deter from our commitment to providing health care in the patient's best interest in mind. Plan of care discussed with attending Physician Dr. Reyna Rodríguez MD PGY-3 Documentation for date of: 04/11/25 Subjective Subjective Interval history: No overnight events. Evaluated at bedside. Left knee swelling and ROM improved compare to yesterday. US left knee shows prepetallar absess. Pending synovial cultures. Plan for PICC line insertion. Exam Vital Signs Temp Pulse Resp BP Pulse Ox O2 Del Method 97.6 F 75 18 120/66 94 L Room Air 04/11/25 08:00 04/11/25 09:39 04/11/25 08:00 04/11/25 09:39 04/11/25 08:00 04/11/25 08:00 Narrative Exam General: Well appearing, well nourished, in no distress. Oriented x 3, normal mood and affect . sitting at the edge of the bed, Head: Normocephalic, atraumatic, no visible or palpable masses, depressions, or scaring. Heart: regular rate and rhythm, no murmur or gallop Lungs: Clear to auscultation and percussion. No rales, wheeze, or rhonchi Abdomen: Bowel sounds normal, no tenderness Back: Spine normal without deformity or tenderness, Extremities: LLE with excoriations healing on anterior patellar surface. Erythema and mildly violacious at knee, and proximally and distally. no puralent drainage, tender to palpation, 04/26 Musculoskeletal: range of motion is improved from prior, sitting with LLE flexed at 90 degrees and able to range with active and passive motion to full extention at knee Objective Labs 04/12/25 05:09 04/12/25 05:09 Labs: Laboratory Results - last 24 hr 04/09/25 04/11/25 05:52 04:40 WBC 3.8 RBC 3.60 L Hgb 11.6 L Hct 34.8 L MCV 97 MCH 32.2 MCHC 33.3 RDW Std Deviation 43.0 Plt Count 221 Neut % (Auto) 57 Lymph % (Auto) 29 [place] % (Auto) 11 Eos % (Auto) 2 Baso % (Auto) 1 Neut # (Auto) 2.2 Lymph # (Auto) 1.1 [place] # (Auto) 0.4 Eos # (Auto) 0.1 Baso # (Auto) 0.0 Immature Gran # (Auto) 0.03 H Absolute Nucleated RBC 0.00 Immature Gran % 1 H Nucleated RBC % 0 Sodium 143 Potassium 3.9 Chloride 107 Carbon Dioxide 25.7 Anion Gap 10 BUN 8 L Creatinine 0.9 Estim Creat Clear Calc 100.6 eGFR > 60 BUN/Creatinine Ratio 9 L Glucose 107 H Calculated Osmolality 283 Calcium 8.9 Corrected Calcium 9.2 Phosphorus 3.0 Magnesium 2.0 Total Bilirubin 0.5 AST 75 H ALT 59 H Alkaline Phosphatase 61 Total Protein 6.3 Albumin 3.6 Globulin 2.7 Albumin/Globulin Ratio 1.3 Coccidioides IgG Ab Negative Quality Measures Quality Measures VTE prophylaxis Assessment & Plan Assessment Current Active Medications: Generic Name Dose Route Start Last Admin Trade Name Freq PRN Reason Stop Dose Admin Acetaminophen 650 mg 04/08/25 01:39 Acetaminophen 325 Mg Tablet PO 05/08/25 01:38 Q6H PRN PAIN SCALE 1-3 (mild Hydrocodone Bitart/Acetaminophen 1 tab 04/08/25 01:39 04/10/25 09:52 Hydrocodone/Apap 10/325 Tab PO 04/13/25 01:38 1 tab Q4H PRN Administration PAIN SCALE 4-6 (Moderate Atorvastatin Calcium 40 mg 04/09/25 21:00 04/10/25 20:58 Atorvastatin Calcium 20 Mg Tablet PO 05/09/25 20:59 40 mg HS DARREN Administration Dextrose 25 ml 04/08/25 01:39 Dextrose 50%-Water Inj 50 Ml Syringe IV 05/08/25 01:38 Q15MIN PRN BG 50-70 responsive npo pt Dextrose 50 ml 04/08/25 01:39 Dextrose 50%-Water Inj 50 Ml Syringe IV 05/08/25 01:38 Q15MIN PRN BG <50 OR BG <70 & pt unresponsive Doxycycline Hyclate 100 mg 04/10/25 11:15 04/11/25 09:39 Doxycycline 100 Mg Tablet PO 05/08/25 11:14 100 mg BID DARREN Administration Enoxaparin Sodium 40 mg 04/09/25 09:00 04/11/25 09:42 Enoxaparin Sod Inj 40 Mg/0.4 Ml Syringe SC 04/23/25 08:59 40 mg QDAY DARREN Administration Glucagon 1 mg 04/08/25 01:39 Glucagon Inj 1 Mg Vial IM Q15MIN PRN BG <70, and no IV access Ceftriaxone Sodium/Dextrose 2 gm in 50 mls @ 100 mls/hr 04/11/25 09:00 04/11/25 09:42 Rocephin/D5w 2gm IV 05/08/25 09:54 100 mls/hr QDAY DARREN Administration Lisinopril 20 mg 04/09/25 09:00 04/11/25 09:39 Lisinopril 20 Mg Tablet PO 05/09/25 08:59 20 mg QDAY DARREN Administration Morphine Sulfate 1 mg 04/08/25 01:39 04/08/25 04:27 Morphine Sulf Inj 10 Mg/Ml Vial IVP 04/13/25 01:38 1 mg Q6H PRN Administration PAIN SCALE 7-10 (Severe Ondansetron HCl 4 mg 04/08/25 01:39 04/11/25 09:42 Ondansetron Inj 2 Mg/Ml Inj 2 Ml IVP 05/08/25 01:38 4 mg Q6H PRN Administration NAUSEA OR VOMITING Protocol Pantoprazole Sodium 40 mg 04/09/25 09:00 04/11/25 09:40 Pantoprazole 40 Mg Tablet PO 05/09/25 08:59 40 mg QDAY DARREN Administration Sennosides 1 tab 04/08/25 01:39 Senna Tablet PO 05/08/25 01:38 QDAY PRN constipation Protocol Plan 49-year-old male with past medical history of prediabetes, hypertension, obesity presenting to the ED with left knee pain will be admitted for management of septic arthritis with IV antibiotics and IV fluids resuscitation along with ID consultation and orthopedic consultation for management. Pending joint aspiration cultures, d/c vanc and zosyn per ID recs, plan to do 4 wks ctx 2gm and doxy 100 bid. Plan for PICC line insertion. #Cellulitis, prepetellar abscess Patient failed outpatient oral antibiotic therapy, per odilia On examination, patient's left leg is erythematous and swollen; currently bandaged after attempt at By Dr. Nash Patient does not have elevated WBC but did present with low-grade fever and tachycardia, ctm for systemic signs of infxn, improving ROM on exam, able to ambulate. -d/c vanc and zosyn, start IV CTX 2gm and doxy 100 mg BID , 4 wk course (04/10- 05/08) per ID recs, f/u with weekly cbc, renal panel. -US left knee on 04/11/25 shows early soft tissue abscess prepatellar, 2.0 x 0.8 x 1.5 cm -Pending synovial fluid cultures -Plan PICC line for IV abx -Knee x-ray shows prepatellar soft tissue prominence -venous Doppler study is negative for any DVT -MR left knee non con shows significant knee effusion, soft tissue abscess prepatellar, moderate sprain anterior cruciate ligament, negative for osteomyelitis -Dr Eaton, ID, consulted : chlamydia neg. gonorrhoeae neg. Trich neg. HIV 1&2 neg. cocci serology negative -Multimodal pain management: NORCO 10-325 q4hr prn , morpheine 1mg q6hr prn #Transaminitis query related to obesity, patient has BMI of 30.7, consider nonalcoholic fatty liver disease, Occasional alcohol use versus metabolic associated steatotic liver disease 04/11/25 AST 75, ALT 59, likely secondary to abx infusion, will continue to monitor - Daily LFTs - Hep panel negative - Outpt follow up with PCP #Hypertension - continue home med lisinopril 20mg - outpt follow up with PCP #Hyperlipidemia #Hypertriglycerinemia - continue home med Atorvastatin 40 mg qd - outpt follow up with PCP #Prediabetes - A1c 5.9 - Outpt follow up with PCP #Electrolyte abnormalities #Hypomagnesia - daily CMP, Mg and Phos - replete as needed with goal of Mg>2 and K >4 Dispo: plan for discharge home with HH, given IV abx needs. weekly lab follow up when outpatient DVT prophylaxis: Lovenox 40mg GI prophylaxis: Protonix 40mg Diet: Regular diet Lines: Peripheral IV, pending PICC line Code status: Full code Case discussed with my senior resident Dr. Rodríguez Case discussed with my attending Dr. Reyna Duggan, DO PGY1
--- NOTE | 2025-04-11 13:11 | XR_ITS ---
Examination: Ultrasound soft tissue extremity left knee Technique: Grayscale sonographic images soft tissue left knee Date and time: April 11, 2025, 1330 hrs. Indications: Left knee pain beginning 4 days ago, prepatellar soft tissue prominence Findings: Prepatellar anechoic area with internal echogenicity 2.0 x 0.8 x 1.5 cm Impression: Early soft tissue abscess prepatellar, 2.0 x 0.8 x 1.5 cm
[2025-04-11] MEDS: ACETAMINOPHEN 325 MG TABLET 650 MG PO (16:05)
[2025-04-11] MEDS: LIDOCAINE HCL 1% 20 ML VIAL IM (20:10)
--- NOTE | 2025-04-11 20:10 | PC.NURSE ---
Dr. Mccord at bedside to perform needle aspiration to left knee. Verbal and written consent obtained, time out initiated, assisted Dr. Mccord, specimen sent to lab.
--- NOTE | 2025-04-11 20:36 | PD.ORTHCONPN ---
Subjective Subjective Brief History: 49-year-old male who describes Lemon spine penetrating injury left knee. Increased pain swelling. Went to [facility]. This placed on doxycycline and Keflex. Situation became worse. Then presented to the emergency room here at 9:00 tonight. Pain with flexion extension left knee. Swelling left knee with marked redness and heat. Swelling left leg. Narrative: More pain today. More swelling. Edema left lower extremity back. Does have area of fluctuance prepatellar area. Dr. Fulton concerned about abscess. Exam Vital Signs Temp Pulse Resp BP Pulse Ox O2 Del Method 97.4 F 84 17 109/77 90 L Room Air 04/11/25 20:00 04/11/25 20:00 04/11/25 20:00 04/11/25 20:00 04/11/25 20:00 04/11/25 16:00 Vital signs temp 97.4 Narrative Exam See above with increased swelling, increased edema increased redness increased pain to movement left knee Objective - Ortho Labs 04/12/25 05:09 04/12/25 05:09 Labs: Laboratory Results - last 24 hr 04/11/25 04:40 WBC 3.8 RBC 3.60 L Hgb 11.6 L Hct 34.8 L MCV 97 MCH 32.2 MCHC 33.3 RDW Std Deviation 43.0 Plt Count 221 Neut % (Auto) 57 Lymph % (Auto) 29 [place] % (Auto) 11 Eos % (Auto) 2 Baso % (Auto) 1 Neut # (Auto) 2.2 Lymph # (Auto) 1.1 [place] # (Auto) 0.4 Eos # (Auto) 0.1 Baso # (Auto) 0.0 Immature Gran # (Auto) 0.03 H Absolute Nucleated RBC 0.00 Immature Gran % 1 H Nucleated RBC % 0 Sodium 143 Potassium 3.9 Chloride 107 Carbon Dioxide 25.7 Anion Gap 10 BUN 8 L Creatinine 0.9 Estim Creat Clear Calc 100.6 eGFR > 60 BUN/Creatinine Ratio 9 L Glucose 107 H Calculated Osmolality 283 Calcium 8.9 Corrected Calcium 9.2 Phosphorus 3.0 Magnesium 2.0 Total Bilirubin 0.5 AST 75 H ALT 59 H Alkaline Phosphatase 61 Total Protein 6.3 Albumin 3.6 Globulin 2.7 Albumin/Globulin Ratio 1.3 White count 3800 Assessment & Plan Assessment Additional comments: I spoke with patient about aspirating the area that is fluctuant. I feeling all along is sympathetic prepatellar bursa fluid. The area was carefully prepped with alcohol and then the area was infiltrated with 3 cc and using 22-gauge needle. After waiting 5 minutes and using a 16-gauge needle I aspirated 5 cc of blood-tinged fluid. Will send it for cell count culture and sensitivity Plan I called hospitalist. I am concerned that things have reversed on Rocephin and doxycycline and he is clinically not doing as well. I want him back on vancomycin and the Zosyn at least through the weekend weekend. He was sent out on Keflex and doxycycline from [facility]. it did not take care of the problem. switched back to cephalosporin and doxycycline yesterday and again it is not as good as it was on Zosyn and vancomycin. Documentation for date of: 04/11/25
[2025-04-11] MEDS: ATORVASTATIN CALCIUM 20 MG TABLET 40 MG PO (21:41)
[2025-04-11] MEDS: PIPER/TAZO 3.375 GM PREMIX 3.375 GM/50 ML BAG IV (21:43)
[2025-04-11] MEDS: Vancomycin Inj 1,000 MG in SODIUM CHLORIDE 0.9% 250 ML 250 ML 250 MG IV ×2 (22:02→23:15)
[2025-04-11 22:18] LABS: Source,Synovial Fluid Knee; Synovial Fluid Appearance Bloody; Synovial Fluid Color Red
[2025-04-11 22:22] LABS: Synovial Fluid Diff Comment Comment Below; Synovial Fluid Mononuclear 17.5 %; Synovial Fluid Polynuclear 82.5 %; Synovial Fluid WBC 547 /cmm
[2025-04-11 23:44] LABS: Synovial Fluid RBC 234000 /cmm
[2025-04-12] VITALS (8 sets, daily range): BP systolic 90–130; BP diastolic 69–86; PULSE 72–103; RESP 16–18; TEMP 36.2–36.7; O2SAT 94–98; BMI 28.8
[2025-04-12] MEDS: PIPER/TAZO 3.375 GM PREMIX 3.375 GM/50 ML BAG IV (05:41)
[2025-04-12 06:10] LABS: Basophils # (Auto) 0.0 Thou/mm3 (0.0-0.2); Basophils % (Auto) 0 % (0-2.5); Eosinophils # (Auto) 0.1 Thou/mm3 (0.0-0.5); Eosinophils % (Auto) 2 % (0-10); Hematocrit 36.6 % (41.0-53.0); Hemoglobin 12.1 g/dL (13.5-16.0); Immature Granulocytes Auto 0.04 Thou/mm3 (0.00-0.00); Lymphocytes # (Auto) 1.2 Thou/mm3 (1.0-4.8); Lymphocytes % (Auto) 25 % (10-50); Mean Corpuscular HGB Conc 33.1 g/dl (31.0-37.0); Mean Corpuscular Hemoglobin 31.9 pg (25.0-35.0); Mean Corpuscular Volume 97 fL (80-100); Monocytes # (Auto) 0.4 Thou/mm3 (0.0-0.8); Monocytes % (Auto) 8 % (0-12); Neutrophils # (Auto) 3.0 Thou/mm3 (1.8-7.7); Neutrophils % (Auto) 63 % (37-80); Nucleated Red Blood Cell # 0.00 Thou/mm3 (0.00-0.00); Nucleated Red Blood Cell % 0 /100 WBC (0); Platelet Count 235 Thou/mm3 (140-440); RDW Standard Deviation 42.6 fL (35.1-43.9); Red Blood Count 3.79 Miln/mm3 (4.50-5.90); White Blood Count 4.7 Thou/mm3 (3.8-10.6)
[2025-04-12 06:45] LABS: Alanine Aminotransferase 118 U/L (10-49); Albumin, Serum 3.7 gm/dL (3.5-5.0); Albumin/Globulin Ratio 1.3 (1.2-2.2); Alkaline Phosphatase 67 U/L (46-116); Anion Gap 12 (7-16); Aspartate Amino Transferase 166 U/L (0-34); BUN/Creatinine Ratio 8 Ratio (12-20); Bilirubin,Total 0.5 mg/dL (0.3-1.2); Blood Urea Nitrogen 8 mg/dL (9-23); Calcium 9.0 mg/dL (8.3-10.6); Calcium (Corrected) 9.2 mg/dL (8.5-10.1); Carbon Dioxide 23.0 mMol/L (20.0-31.0); Chloride 108 mMol/L (98-107); Creatinine (Component) 1.0 mg/dL (0.6-1.3); Estimated Creatinine Clearance 90.5 mL/min (>60); Globulin 2.9 gm/dL (2.3-3.5); Glucose 120 mg/dL (74-106); Magnesium 1.4 mg/dL (1.6-2.6); Osmolality,Calculated 284 (275-295); Phosphorous 4.3 mg/dL (2.4-5.1); Potassium 3.8 mMol/L (3.4-5.1); Sodium 143 mMol/L (136-145); Total Protein 6.6 gm/dL (5.7-8.2); eGFR > 60 See Note
[2025-04-12] MEDS: ENOXAPARIN SOD INJ 40 MG/0.4 ML SYRINGE SC (08:54)
[2025-04-12] MEDS: PANTOPRAZOLE 40 MG TABLET PO (08:54)
[2025-04-12] MEDS: Magnesium Sulfate 4 GM Ivpb 4 GM/50 ML BAG IV (08:55)
[2025-04-12] MEDS: LEVOFLOXACIN/D5W 750MG IVPB 750 MG/150 ML BAG 100 MG IV (10:46)
[2025-04-12] MEDS: DOXYCYCLINE 100 MG TABLET PO ×2 (10:46→20:02)
--- NOTE | 2025-04-12 15:17 | PC.CC ---
Pt doesn't have a picc line placed yet and no home health agency has accepted the pt. [facility] is also considering. Unable to dc the pt.
--- NOTE | 2025-04-12 15:45 | PD.ORTHCONPN ---
Subjective Subjective Brief History: 49-year-old male who describes Lemon spine penetrating injury left knee. Increased pain swelling. Went to [facility]. This placed on doxycycline and Keflex. Situation became worse. Then presented to the emergency room here at 9:00 tonight. Pain with flexion extension left knee. Swelling left knee with marked redness and heat. Swelling left leg. Narrative: Patient much better today. Exam Vital Signs Temp Pulse Resp BP Pulse Ox O2 Del Method 97.1 F 87 18 119/85 H 98 Room Air 04/12/25 12:00 04/12/25 12:00 04/12/25 12:00 04/12/25 12:00 04/12/25 12:00 04/12/25 12:00 Blood pressure 119/85, temp 97.1 pulse 98 room air Narrative Exam Swelling today is dramatically down. Edema of left leg better swelling knee down wrinkling present. Less fluid. Patella region of knee Objective - Ortho Labs 04/12/25 05:09 04/12/25 05:09 Labs: Laboratory Results - last 24 hr 04/11/25 04/12/25 20:34 05:09 WBC 4.7 RBC 3.79 L Hgb 12.1 L Hct 36.6 L MCV 97 MCH 31.9 MCHC 33.1 RDW Std Deviation 42.6 Plt Count 235 Neut % (Auto) 63 Lymph % (Auto) 25 [place] % (Auto) 8 Eos % (Auto) 2 Baso % (Auto) 0 Neut # (Auto) 3.0 Lymph # (Auto) 1.2 [place] # (Auto) 0.4 Eos # (Auto) 0.1 Baso # (Auto) 0.0 Immature Gran # (Auto) 0.04 H Absolute Nucleated RBC 0.00 Immature Gran % 1 H Nucleated RBC % 0 Sodium 143 Potassium 3.8 Chloride 108 H Carbon Dioxide 23.0 Anion Gap 12 BUN 8 L Creatinine 1.0 Estim Creat Clear Calc 90.5 eGFR > 60 BUN/Creatinine Ratio 8 L Glucose 120 H Calculated Osmolality 284 Calcium 9.0 Corrected Calcium 9.2 Phosphorus 4.3 Magnesium 1.4 L Total Bilirubin 0.5 AST 166 H ALT 118 H Alkaline Phosphatase 67 Total Protein 6.6 Albumin 3.7 Globulin 2.9 Albumin/Globulin Ratio 1.3 Synovial Source Knee Synovial Color Red Synovial Appearance Bloody Synovial WBC 547 Synovial RBC [id number] Synov Polynuclear WBCs 82.5 Synov Mononuclear WBCs 17.5 Synovial Fluid Comment Comment Below 6 7 creatinine 1.0. WBC 547. It looks like prepatellar swelling is probably sympathetic to cellulitis Assessment & Plan Assessment Additional comments: Antibiotic Levaquin Plan Much better I pray we do not send him home too soon Documentation for date of: 04/12/25
--- NOTE | 2025-04-12 17:31 | ESPR_ITS ---
<Statement entered by Aleksandr Orellana MD - 04/17/25 07:33> I reviewed above note and agree with findings and plans. I have also personally examined the patient with medicine team and went over assessment and plan with medical team including general internist and physician leader and resident physician. <Statement entered by Mati Funes MD - 04/12/25 17:52> Patient seen and examined at bedside. I discussed and supervised with the general internist and physician leader physician who took care of this patient. I personally saw and examined the patient. I agree with most of the assessment and plan. LFTs trending up, changed antibiotics to doxy and levaquin. Pending ID consult and PICC line tomorrow. Plan of care discussed with attending Dr. Orellana. Mati Funes MD PGY-2 Documentation for date of: 04/12/25 Subjective Subjective Interval history: No overnight events. Evaluated at bedside. LFTs uptrending, d/c vanco and zosyn, switch to doxy and levofloxacin. Orthro aspirated 5cc of blood tinged fluid from left prepetallar absess on 04/11. Exam Vital Signs Temp Pulse Resp BP Pulse Ox O2 Del Method 97.1 F 76 18 119/74 94 L Room Air 04/12/25 16:00 04/12/25 16:00 04/12/25 16:00 04/12/25 16:00 04/12/25 16:04/12/25 16:00 Narrative Exam General: Well appearing, well nourished, in no distress. Oriented x 3, normal mood and affect . sitting at the edge of the bed, Head: Normocephalic, atraumatic, no visible or palpable masses, depressions, or scaring. Heart: regular rate and rhythm, no murmur or gallop Lungs: Clear to auscultation and percussion. No rales, wheeze, or rhonchi Abdomen: Bowel sounds normal, no tenderness Back: Spine normal without deformity or tenderness, Extremities: LLE with excoriations healing on anterior patellar surface. Erythema and mildly violacious at knee, and proximally and distally. no puralent drainage, tender to palpation, 6/10 Musculoskeletal: range of motion is improved from prior, sitting with LLE flexed at 90 degrees and able to range with active and passive motion to full extention at knee Objective Labs 04/12/25 05:09 04/12/25 05:09 Labs: Laboratory Results - last 24 hr 04/11/25 04/12/25 20:34 05:09 WBC 4.7 RBC 3.79 L Hgb 12.1 L Hct 36.6 L MCV 97 MCH 31.9 MCHC 33.1 RDW Std Deviation 42.6 Plt Count 235 Neut % (Auto) 63 Lymph % (Auto) 25 [place] % (Auto) 8 Eos % (Auto) 2 Baso % (Auto) 0 Neut # (Auto) 3.0 Lymph # (Auto) 1.2 [place] # (Auto) 0.4 Eos # (Auto) 0.1 Baso # (Auto) 0.0 Immature Gran # (Auto) 0.04 H Absolute Nucleated RBC 0.00 Immature Gran % 1 H Nucleated RBC % 0 Sodium 143 Potassium 3.8 Chloride 108 H Carbon Dioxide 23.0 Anion Gap 12 BUN 8 L Creatinine 1.0 Estim Creat Clear Calc 90.5 eGFR > 60 BUN/Creatinine Ratio 8 L Glucose 120 H Calculated Osmolality 284 Calcium 9.0 Corrected Calcium 9.2 Phosphorus 4.3 Magnesium 1.4 L Total Bilirubin 0.5 AST 166 H ALT 118 H Alkaline Phosphatase 67 Total Protein 6.6 Albumin 3.7 Globulin 2.9 Albumin/Globulin Ratio 1.3 Synovial Source Knee Synovial Color Red Synovial Appearance Bloody Synovial WBC 547 Synovial RBC [id number] Synov Polynuclear WBCs 82.5 Synov Mononuclear WBCs 17.5 Synovial Fluid Comment Comment Below Quality Measures Quality Measures VTE prophylaxis Assessment & Plan Assessment Current Active Medications: Generic Name Dose Route Start Last Admin Trade Name Freq PRN Reason Stop Dose Admin Acetaminophen 650 mg 04/08/25 01:39 04/11/25 16:05 Acetaminophen 325 Mg Tablet PO 05/08/25 01:38 650 mg Q6H PRN Administration PAIN SCALE 1-3 (mild Hydrocodone Bitart/Acetaminophen 1 tab 04/08/25 01:39 04/10/25 09:52 Hydrocodone/Apap 10/325 Tab PO 04/13/25 01:38 1 tab Q4H PRN Administration PAIN SCALE 4-6 (Moderate Dextrose 25 ml 04/08/25 01:39 Dextrose 50%-Water Inj 50 Ml Syringe IV 05/08/25 01:38 Q15MIN PRN BG 50-70 responsive npo pt Dextrose 50 ml 04/08/25 01:39 Dextrose 50%-Water Inj 50 Ml Syringe IV 05/08/25 01:38 Q15MIN PRN BG <50 OR BG <70 & pt unresponsive Doxycycline Hyclate 100 mg 04/12/25 10:45 04/12/25 10:46 Doxycycline 100 Mg Tablet PO 04/19/25 10:44 100 mg BID DARREN Administration Enoxaparin Sodium 40 mg 04/09/25 09:00 04/12/25 08:54 Enoxaparin Sod Inj 40 Mg/0.4 Ml Syringe SC 04/23/25 08:59 40 mg QDAY DARREN Administration Glucagon 1 mg 04/08/25 01:39 Glucagon Inj 1 Mg Vial IM Q15MIN PRN BG <70, and no IV access Levofloxacin/Dextrose 750 mg in 150 mls @ 100 mls/hr 04/12/25 10:30 04/12/25 10:46 Levaquin Ivpb IV 04/19/25 10:29 100 mls/hr QDAY DARREN Administration Lisinopril 20 mg 04/09/25 09:00 04/12/25 08:54 Lisinopril 20 Mg Tablet PO 05/09/25 08:59 20 mg QDAY DARREN Administration Morphine Sulfate 1 mg 04/08/25 01:39 04/08/25 04:27 Morphine Sulf Inj 10 Mg/Ml Vial IVP 04/13/25 01:38 1 mg Q6H PRN Administration PAIN SCALE 7-10 (Severe Ondansetron HCl 4 mg 04/08/25 01:39 04/11/25 09:42 Ondansetron Inj 2 Mg/Ml Inj 2 Ml IVP 05/08/25 01:38 4 mg Q6H PRN Administration NAUSEA OR VOMITING Protocol Pantoprazole Sodium 40 mg 04/09/25 09:00 04/12/25 08:54 Pantoprazole 40 Mg Tablet PO 05/09/25 08:59 40 mg QDAY DARREN Administration Sennosides 1 tab 04/08/25 01:39 Senna Tablet PO 05/08/25 01:38 QDAY PRN constipation Protocol Plan 49-year-old male with past medical history of prediabetes, hypertension, obesity presenting to the ED with left knee pain will be admitted for management of septic arthritis with IV antibiotics and IV fluids resuscitation along with ID consultation and orthopedic consultation for management. Plan for PICC line insertion. Orthro drained 5cc from prepetallar absess on 04/11. LFTs uptrending, d/c vanco and zosyn, switch to doxy and levofloxacin. ID to follow on Sunday #Cellulitis prepetellar abscess Patient failed outpatient oral antibiotic therapy, per odilia On examination, patient's left leg is erythematous and swollen; currently bandaged after attempt at By Dr. Nash Patient does not have elevated WBC but did present with low-grade fever and tachycardia, ctm for systemic signs of infxn, improving ROM on exam, able to ambulate. -d/c vanc and zosyn, switch to doxy and levofloxacin. -US left knee on 04/11/25 shows early soft tissue abscess prepatellar, 2.0 x 0.8 x 1.5 cm -Pending final synovial fluid cultures -Plan PICC line for IV abx -Knee x-ray shows prepatellar soft tissue prominence -venous Doppler study is negative for any DVT -MR left knee non con shows significant knee effusion, soft tissue abscess prepatellar, moderate sprain anterior cruciate ligament, negative for osteomyelitis -Dr Eaton, ID, consulted : chlamydia neg. gonorrhoeae neg. Trich neg. HIV 1&2 neg. cocci serology negative -Multimodal pain management: NORCO 10-325 q4hr prn , morpheine 1mg q6hr prn #Transaminitis query related to obesity, patient has BMI of 30.7, consider nonalcoholic fatty liver disease, Occasional alcohol use versus metabolic associated steatotic liver disease 04/11/25 AST 75, ALT 59, likely secondary to abx infusion, will continue to monitor 04/12/25 LFTs continue to uptrending, switch abx to doxy and levaquin - Daily LFTs - Hep panel negative - Outpt follow up with PCP #Hypertension - continue home med lisinopril 20mg - outpt follow up with PCP #Hyperlipidemia #Hypertriglycerinemia - continue home med Atorvastatin 40 mg qd - outpt follow up with PCP #Prediabetes - A1c 5.9 - Outpt follow up with PCP #Electrolyte abnormalities #Hypomagnesia - daily CMP, Mg and Phos - replete as needed with goal of Mg>2 and K >4 Dispo: plan for discharge home with PICC line, given IV abx needs. weekly lab follow up when outpatient DVT prophylaxis: Lovenox 40mg GI prophylaxis: Protonix 40mg Diet: Regular diet Lines: Peripheral IV, pending PICC line Code status: Full code Case discussed with my senior resident Dr. Funes Case discussed with my attending Dr. Reyna Duggan, DO PGY1
[2025-04-13] VITALS (10 sets, daily range): BP systolic 104–130; BP diastolic 69–87; PULSE 76–97; RESP 13–19; TEMP 36.2–36.6; O2SAT 93–99; BMI 28.8
[2025-04-13 07:11] LABS: Basophils # (Auto) 0.0 Thou/mm3 (0.0-0.2); Basophils % (Auto) 1 % (0-2.5); Eosinophils # (Auto) 0.1 Thou/mm3 (0.0-0.5); Eosinophils % (Auto) 2 % (0-10); Hematocrit 36.6 % (41.0-53.0); Hemoglobin 12.0 g/dL (13.5-16.0); Immature Granulocytes Auto 0.03 Thou/mm3 (0.00-0.00); Lymphocytes # (Auto) 1.4 Thou/mm3 (1.0-4.8); Lymphocytes % (Auto) 33 % (10-50); Mean Corpuscular HGB Conc 32.8 g/dl (31.0-37.0); Mean Corpuscular Hemoglobin 31.7 pg (25.0-35.0); Mean Corpuscular Volume 97 fL (80-100); Monocytes # (Auto) 0.4 Thou/mm3 (0.0-0.8); Monocytes % (Auto) 9 % (0-12); Neutrophils # (Auto) 2.4 Thou/mm3 (1.8-7.7); Neutrophils % (Auto) 55 % (37-80); Nucleated Red Blood Cell # 0.00 Thou/mm3 (0.00-0.00); Nucleated Red Blood Cell % 0 /100 WBC (0); Platelet Count 266 Thou/mm3 (140-440); RDW Standard Deviation 43.7 fL (35.1-43.9); Red Blood Count 3.78 Miln/mm3 (4.50-5.90); White Blood Count 4.3 Thou/mm3 (3.8-10.6)
[2025-04-13 07:44] LABS: Alanine Aminotransferase 112 U/L (10-49); Albumin, Serum 3.8 gm/dL (3.5-5.0); Albumin/Globulin Ratio 1.4 (1.2-2.2); Alkaline Phosphatase 70 U/L (46-116); Anion Gap 10 (7-16); Aspartate Amino Transferase 130 U/L (0-34); BUN/Creatinine Ratio 11 Ratio (12-20); Bilirubin,Total 0.6 mg/dL (0.3-1.2); Blood Urea Nitrogen 11 mg/dL (9-23); Calcium 9.3 mg/dL (8.3-10.6); Calcium (Corrected) 9.5 mg/dL (8.5-10.1); Carbon Dioxide 27.3 mMol/L (20.0-31.0); Chloride 106 mMol/L (98-107); Creatinine (Component) 1.0 mg/dL (0.6-1.3); Estimated Creatinine Clearance 90.5 mL/min (>60); Globulin 2.8 gm/dL (2.3-3.5); Glucose 105 mg/dL (74-106); Magnesium 1.5 mg/dL (1.6-2.6); Osmolality,Calculated 284 (275-295); Phosphorous 4.8 mg/dL (2.4-5.1); Potassium 4.3 mMol/L (3.4-5.1); Sodium 143 mMol/L (136-145); Total Protein 6.6 gm/dL (5.7-8.2); eGFR > 60 See Note
[2025-04-13] MEDS: ENOXAPARIN SOD INJ 40 MG/0.4 ML SYRINGE SC (08:12)
[2025-04-13] MEDS: LEVOFLOXACIN/D5W 750MG IVPB 750 MG/150 ML BAG 100 MG IV (08:13)
[2025-04-13] MEDS: DOXYCYCLINE 100 MG TABLET PO ×2 (08:13→21:42)
[2025-04-13] MEDS: PANTOPRAZOLE 40 MG TABLET PO (08:13)
[2025-04-13] MEDS: Magnesium Sulfate 4 GM Ivpb 4 GM/50 ML BAG IV (08:32)
--- NOTE | 2025-04-13 09:57 | XR_ITS ---
Examination: Ultrasound-guided needle placement right basilic vein. Dual-lumen central line placement (PICC line). Fluoroscopy AP chest, portable, single view Exam date and time:April 05, 2025 1454 hours INDICATIONS: Need for long-term intravenous antibiotic therapy A timeout was completed verifying correct patient, procedure, site, positioning Informed consent provided Technique: The patient's site was prepped and draped in sterile fashion. Maximum Sterile Barrier Technique used including cap, mask, sterile gown, sterile gloves, and sterile full body drape. If ultrasound technique used: sterile gel and sterile probe covers. Hand Hygiene performed using proper scrub, soap and water, or alcohol-based hand rub. Site right portable right is utilized to confirm patency of the right basilic vein Utilizing sonographic guidance successful 21-gauge needle puncture into the right basilic vein Ultrasound images recorded and stored. 5 cc 1% lidocaine administered for local anesthetic. Successful micropuncture with a 21-gauge needle is performed. 0.18 wire guide is then introduced into the SVC under fluoroscopic guidance. Dual-lumen catheter dilator is then introduced, followed by the catheter in the SVC and proper position under fluoroscopic guidance. Successful aspiration of blood and flushing with heparinized saline is then performed in the 2 venous limbs. The catheter sutured in place. Findings: Under fluoroscopy, the tip of the catheter is in good position in the vena cava. Portable chest x-ray, post line placement is ordered. Estimated blood loss 3 cc The patient tolerated the procedure well and was in stable and satisfactory condition at completion of the procedure Impression: Successful ultrasound-guided needle placement right basilic vein Successful placement of dual lumen central line, percutaneous Fluoroscopy 0.1 minute radiation dose 1.25 milligray. AP chest completion procedure demonstrates satisfactory position central line. May use central line.
--- NOTE | 2025-04-13 10:03 | PC.SS ---
SS rounding note; Pic Line pending, patient will discharge home with HH when medically cleared.
--- NOTE | 2025-04-13 10:10 | PC.CC ---
Addendum entered by Jenni Ochoa RN 04/13/25 17:22: picc line report sent to [facility] and [facility]. Original Note: still waiting for PICC line to be placed. Informed IRMA Fuentes that [facility] pharmacy accepted pt and [facility] accepted pending discharge.
--- NOTE | 2025-04-13 14:41 | ESPR_ITS ---
<Statement entered by Aleksandr Orellana MD - 04/18/25 12:37> I reviewed above note and agree with findings and plans. I have also personally examined the patient with medicine team and went over assessment and plan with medical team including internet consultant and resident physician. <Statement entered by Mati Funes MD - 04/13/25 17:21> Patient seen and examined at bedside. I discussed and supervised with the internet consultant physician who took care of this patient. I personally saw and examined the patient. I agree with most of the assessment and plan. Patient received PICC line today. Erythema and tenderness of leg improving, maintaining range of motion. Plan to DC tomorrow with IV antibiotics per ID recs. Plan of care discussed with attending Dr. Orellana. Mati Funes MD PGY-2 Documentation for date of: 04/13/25 Subjective Subjective Interval history: No overnight events. Evaluated at bedside. The patient reports improved of pain to left knee. On exam, left knee is less swollen compare to yesterday, range of motion of left knee improved. Plan for PICC line insertion today, and likely DC tmr. Exam Vital Signs Temp Pulse Resp BP Pulse Ox O2 Del Method 97.1 F 91 18 112/80 95 Room Air 04/13/25 12:00 04/13/25 12:00 04/13/25 12:00 04/13/25 12:00 04/13/25 12:00 04/13/25 12:00 Narrative Exam General: Well appearing, well nourished, in no distress. Oriented x 3, normal mood and affect . sitting at the edge of the bed, Head: Normocephalic, atraumatic, no visible or palpable masses, depressions, or scaring. Heart: regular rate and rhythm, no murmur or gallop Lungs: Clear to auscultation and percussion. No rales, wheeze, or rhonchi Abdomen: Bowel sounds normal, no tenderness Back: Spine normal without deformity or tenderness, Extremities: LLE with excoriations healing on anterior patellar surface. Erythema and mildly violacious at knee, and proximally and distally. no puralent drainage, tender to palpation, 6/10 Musculoskeletal: range of motion is improved from prior, and able to range with active and passive motion to full extention at knee Objective Labs 04/13/25 06:08 04/13/25 06:08 Labs: Laboratory Results - last 24 hr 04/13/25 06:08 WBC 4.3 RBC 3.78 L Hgb 12.0 L Hct 36.6 L MCV 97 MCH 31.7 MCHC 32.8 RDW Std Deviation 43.7 Plt Count 266 D Neut % (Auto) 55 Lymph % (Auto) 33 King % (Auto) 9 Eos % (Auto) 2 Baso % (Auto) 1 Neut # (Auto) 2.4 Lymph # (Auto) 1.4 King # (Auto) 0.4 Eos # (Auto) 0.1 Baso # (Auto) 0.0 Immature Gran # (Auto) 0.03 H Absolute Nucleated RBC 0.00 Immature Gran % 1 H Nucleated RBC % 0 Sodium 143 Potassium 4.3 D Chloride 106 Carbon Dioxide 27.3 Anion Gap 10 BUN 11 Creatinine 1.0 Estim Creat Clear Calc 90.5 eGFR > 60 BUN/Creatinine Ratio 11 L Glucose 105 Calculated Osmolality 284 Calcium 9.3 Corrected Calcium 9.5 Phosphorus 4.8 Magnesium 1.5 L Total Bilirubin 0.6 AST 130 H ALT 112 H Alkaline Phosphatase 70 Total Protein 6.6 Albumin 3.8 Globulin 2.8 Albumin/Globulin Ratio 1.4 Quality Measures Quality Measures VTE prophylaxis Assessment & Plan Assessment Current Active Medications: Generic Name Dose Route Start Last Admin Trade Name Freq PRN Reason Stop Dose Admin Acetaminophen 650 mg 04/08/25 01:39 04/11/25 16:05 Acetaminophen 325 Mg Tablet PO 05/08/25 01:38 650 mg Q6H PRN Administration PAIN SCALE 1-3 (mild Dextrose 25 ml 04/08/25 01:39 Dextrose 50%-Water Inj 50 Ml Syringe IV 05/08/25 01:38 Q15MIN PRN BG 50-70 responsive npo pt Dextrose 50 ml 04/08/25 01:39 Dextrose 50%-Water Inj 50 Ml Syringe IV 05/08/25 01:38 Q15MIN PRN BG <50 OR BG <70 & pt unresponsive Doxycycline Hyclate 100 mg 04/12/25 10:45 04/13/25 08:13 Doxycycline 100 Mg Tablet PO 04/19/25 10:44 100 mg BID DARREN Administration Enoxaparin Sodium 40 mg 04/09/25 09:00 04/13/25 08:12 Enoxaparin Sod Inj 40 Mg/0.4 Ml Syringe SC 04/23/25 08:59 40 mg QDAY DARREN Administration Glucagon 1 mg 04/08/25 01:39 Glucagon Inj 1 Mg Vial IM Q15MIN PRN BG <70, and no IV access Levofloxacin/Dextrose 750 mg in 150 mls @ 100 mls/hr 04/12/25 10:30 04/13/25 08:13 Levaquin Ivpb IV 04/19/25 10:29 100 mls/hr QDAY DARREN Administration Lisinopril 20 mg 04/09/25 09:00 04/13/25 08:13 Lisinopril 20 Mg Tablet PO 05/09/25 08:59 20 mg QDAY DARREN Administration Ondansetron HCl 4 mg 04/08/25 01:39 04/11/25 09:42 Ondansetron Inj 2 Mg/Ml Inj 2 Ml IVP 05/08/25 01:38 4 mg Q6H PRN Administration NAUSEA OR VOMITING Protocol Pantoprazole Sodium 40 mg 04/09/25 09:00 04/13/25 08:13 Pantoprazole 40 Mg Tablet PO 05/09/25 08:59 40 mg QDAY DARREN Administration Sennosides 1 tab 04/08/25 01:39 Senna Tablet PO 05/08/25 01:38 QDAY PRN constipation Protocol Plan 49-year-old male with past medical history of prediabetes, hypertension, obesity presenting to the ED with left knee pain will be admitted for management of septic arthritis with IV antibiotics and IV fluids resuscitation along with ID consultation and orthopedic consultation for management. Plan for PICC line insertion today, likely DC tmr. #Cellulitis prepetellar abscess Patient failed outpatient oral antibiotic therapy, per odilia On examination, patient's left leg is erythematous and swollen; currently bandaged after attempt at By Dr. Nash Patient does not have elevated WBC but did present with low-grade fever and tachycardia, ctm for systemic signs of infxn, improving ROM on exam, able to ambulate. Synovial fluid of left knee cultured on 04/08 shows no growth Blood cultures on 04/07 shows no growth US left knee on 04/11/25 shows early soft tissue abscess prepatellar, 2.0 x 0.8 x 1.5 cm Knee x-ray on 04/10/25 shows prepatellar soft tissue prominence venous Doppler study on 04/07/25 is negative for any DVT MR left knee non con on 04/08/25 shows significant knee effusion, soft tissue abscess prepatellar, moderate sprain anterior cruciate ligament, negative for osteomyelitis chlamydia neg. gonorrhoeae neg. Trich neg. HIV 1&2 neg. cocci serology negative -continue doxy and levofloxacin. -Pending left knee culture on 04/08 -Pending left synovial fluid on 04/11 -Plan PICC line for IV abx today. -Dr Eaton, ID, consulted : recommends 4 weeks of rocephin 2 gm iv daily and doxy 100 po bid with weekly cbc, renal panel, esr and line removal at end of rx -Multimodal pain management: NORCO 10-325 q4hr prn , morpheine 1mg q6hr prn #Transaminitis query related to obesity, patient has BMI of 30.7, consider nonalcoholic fatty liver disease, Occasional alcohol use versus metabolic associated steatotic liver disease 04/11/25 AST 75, ALT 59, likely secondary to abx infusion, will continue to monitor 04/12/25 LFTs continue to uptrending, switch abx to doxy and levaquin 04/13/25 LFTs downtrending - Daily LFTs - Hep panel negative - Outpt follow up with PCP #Hypertension - continue home med lisinopril 20mg - outpt follow up with PCP #Hyperlipidemia #Hypertriglycerinemia - held home med Atorvastatin 40 mg qd due to elevated LFTs - outpt follow up with PCP #Prediabetes - A1c 5.9 - Outpt follow up with PCP #Electrolyte abnormalities #Hypomagnesia - daily CMP, Mg and Phos - replete as needed with goal of Mg>2 and K >4 Dispo: plan for discharge home with PICC line, given IV abx needs. weekly lab follow up when outpatient DVT prophylaxis: Lovenox 40mg GI prophylaxis: Protonix 40mg Diet: Regular diet Lines: Peripheral IV, pending PICC line Code status: Full code Case discussed with my senior resident Dr. Funes Case discussed with my attending Dr. Reyna Caballero Olga Lidia, DO PGY1
[2025-04-13] MEDS: LIDOCAINE INJ PF 1% 30 ML VIAL INFL (15:20)
[2025-04-13] MEDS: HEPARIN SOD LOCK SYR 100 UNIT/ML 500 UNIT IV (15:20)
[2025-04-14] VITALS: BP 105/68; PULSE 85; PULSE 90; RESP 17; TEMP 36.1; O2SAT 95
[2025-04-14 04:00] VITALS: BP 112/77; PULSE 82; PULSE 88; RESP 18; TEMP 36.1; O2SAT 96
[2025-04-14 05:32] LABS: Basophils # (Auto) 0.1 Thou/mm3 (0.0-0.2); Basophils % (Auto) 1 % (0-2.5); Eosinophils # (Auto) 0.1 Thou/mm3 (0.0-0.5); Eosinophils % (Auto) 2 % (0-10); Hematocrit 39.9 % (41.0-53.0); Hemoglobin 13.4 g/dL (13.5-16.0); Immature Granulocytes Auto 0.03 Thou/mm3 (0.00-0.00); Lymphocytes # (Auto) 1.9 Thou/mm3 (1.0-4.8); Lymphocytes % (Auto) 36 % (10-50); Mean Corpuscular HGB Conc 33.6 g/dl (31.0-37.0); Mean Corpuscular Hemoglobin 32.1 pg (25.0-35.0); Mean Corpuscular Volume 96 fL (80-100); Monocytes # (Auto) 0.4 Thou/mm3 (0.0-0.8); Monocytes % (Auto) 7 % (0-12); Neutrophils # (Auto) 2.9 Thou/mm3 (1.8-7.7); Neutrophils % (Auto) 54 % (37-80); Nucleated Red Blood Cell # 0.00 Thou/mm3 (0.00-0.00); Nucleated Red Blood Cell % 0 /100 WBC (0); Platelet Count 323 Thou/mm3 (140-440); RDW Standard Deviation 43.8 fL (35.1-43.9); Red Blood Count 4.17 Miln/mm3 (4.50-5.90); White Blood Count 5.4 Thou/mm3 (3.8-10.6)
[2025-04-14 06:00] VITALS: BMI 28.5
[2025-04-14 06:12] LABS: Alanine Aminotransferase 107 U/L (10-49); Albumin, Serum 4.2 gm/dL (3.5-5.0); Albumin/Globulin Ratio 1.3 (1.2-2.2); Alkaline Phosphatase 74 U/L (46-116); Anion Gap 15 (7-16); Aspartate Amino Transferase 117 U/L (0-34); BUN/Creatinine Ratio 8 Ratio (12-20); Bilirubin,Total 0.8 mg/dL (0.3-1.2); Blood Urea Nitrogen 8 mg/dL (9-23); Calcium 9.6 mg/dL (8.3-10.6); Calcium (Corrected) 9.6 mg/dL (8.5-10.1); Carbon Dioxide 19.5 mMol/L (20.0-31.0); Chloride 107 mMol/L (98-107); Creatinine (Component) 1.0 mg/dL (0.6-1.3); Estimated Creatinine Clearance 90.5 mL/min (>60); Globulin 3.2 gm/dL (2.3-3.5); Glucose 109 mg/dL (74-106); Osmolality,Calculated 280 (275-295); Potassium 4.0 mMol/L (3.4-5.1); Sodium 141 mMol/L (136-145); Total Protein 7.4 gm/dL (5.7-8.2); eGFR > 60 See Note
[2025-04-14 08:00] VITALS: BP 128/91; PULSE 101; PULSE 99; RESP 18; TEMP 36.3; O2SAT 98
[2025-04-14 09:48] VITALS: BP 128/91; PULSE 99
[2025-04-14] MEDS: ENOXAPARIN SOD INJ 40 MG/0.4 ML SYRINGE SC (09:48)
[2025-04-14] MEDS: LEVOFLOXACIN/D5W 750MG IVPB 750 MG/150 ML BAG 100 MG IV (09:48)
[2025-04-14] MEDS: PANTOPRAZOLE 40 MG TABLET PO (09:48)
[2025-04-14] MEDS: DOXYCYCLINE 100 MG TABLET PO (09:48)
[2025-04-14 12:00] VITALS: BP 100/68; PULSE 86; PULSE 94; RESP 18; TEMP 36.6; O2SAT 96
--- NOTE | 2025-04-14 12:22 | PC.CM ---
Addendum entered by Susy Uriarte RN 04/15/25 09:29: Patient was cleared to go home with home health on 04/14. [facility] was going to see patient today and [facility] delivered meds yesterday. I faxed over discharge summary today to [facility] and to [facility]. Addendum entered by Susy Uriarte RN 04/14/25 13:02: [facility] text me stating they do not see patient was seen by Brandy August PCP. I called Gina and she states she did verify with patient that he saw Brandy August at [facility] in [place]. I sent that information via [facility]. Original Note: Paperwork was sent yesterday to [facility] and [facility]. I spoke to [facility] and they stated they wanted to know what time patient patient received his Rocephin today. I reviewed EMR and I spoke to patient's nurse and patient is not on Rocephin. I called and left a message for MD to call me. Patient should be on the IV medication he is discharging with, so we can make sure patient is tolerating medication.
--- NOTE | 2025-04-14 12:54 | PC.SS ---
SS follow up note; SS was contacted by jennifer Jain nurse reporting that [facility] informed her that patient's PCP mentioned patient has not been seen by them. SS followed up with patient and he informed SS that he seen Brandy August last month. SS also contacted [facility] in [facility] and the spa receptionist confirmed that patient was seen last month by Brandy CALLAWAY. SS updated Nurse Sofie.
--- NOTE | 2025-04-14 13:40 | ESDS_ITS ---
<Statement entered by Aleksandr Orellana MD - 04/18/25 12:38> I reviewed above note and agree with findings and plans. I have also personally examined the patient with medicine team and went over assessment and plan with medical team including product management intern and resident physician. <Statement entered by Mati Funes MD - 04/14/25 14:32> Patient seen and examined at bedside. I discussed and supervised with the product management intern physician who took care of this patient. I personally saw and examined the patient. I agree with most of the assessment and plan. Plan of care discussed with attending Dr. Reyna Funes MD PGY-2 Planned Discharge Date 04/14/25 DS: Providers Provider Date of admission: 04/08/25 01:39 Primary care physician: Brandy August PA-C([facility] Admitting Provider: Zachery Cross MD Attending Provider on Admission: Zachery Cross MD Consults: 04/08/25 01:24 Consult to Infectious Diseases Routine Comment: Lemon spine with swelling beginning 9 days ago. S Consulting Provider: Manuel Eaton Instructions: Seen after we had started on Doxy and Keflex. Increased swelling edema left lower extremity I used 16-gauge needle to aspirate at 01 100 small amount of blood encountered. Thanks for your recommendations 04/08/25 01:35 Consult to Orthopedic Stat Comment: Consulting Provider: Rasheed Mccord Attending Provider on DC: Aleksandr Orellana MD Discharging Provider: Federico Duggan DO Anticipated date of discharge: 04/14/25 DS: Diagnosis Problem List Completed Was Problem List Reviewed/Reconciled?: Yes Hospital Course Hospital Course Hospital course: Mr. Zamarripa is a 49-year-old male with past medical history of prediabetes, hypertension, and obesity admitted for prepetellar cellulitis. Pt was pricked by a lemon thorn on his left knee around 03/31/25 when he was working. He went to [facility] ED for left knee pain where they discharged him with oral Keflex and doxycycline. Pt stated he was taking his antibiotics as instructed but his left knee started to become more inflamed and painful. In the ED, Dr. Mccodr the orthropedic surgeon attempted to tap the left knee but was unsuccessful. He was taken to IR the next day for image-guided left knee joint aspiration. Joint asp iration culture negative for bacterial growth. Zosyn was started in the ER, followed by addition of vancomycin per ID recommendation. His antibiotic regimen was switch to doxy and levofloxacin due to an increased in LFTs. Knee MRI negative for osteomyelitis, and Knee XR showed prepetellar abscess. An I&D was performed by Dr. Mccord on 04/11 to the prepetellar abscess with 5cc aspirated. PICC line inserted on 04/13. Dr. Eaton suggested to keep pt on 4 weeks of rocephin 2 gm iv daily and doxy 100 po bid with weekly cbc, renal panel, esr and line removal at end of treatment. Pt had good range of motion to his left knee throughout this admission and was ambulatory without assistance. Pt's left knee swelling and erythema had greatly improved by the end of this admission. Pt is medically and physically stable for discharge. Diagnosis #Cellulitis prepetellar abscess #Transaminitis #Hypertension #Hyperlipidemia #Hypertriglycerinemia #Prediabetes Discharge Plan: You will need to continue IV antibiotic for 4 weeks including 2 g IV ceftriaxone once daily and p.o. doxycycline twice daily until May 08 to complete antibiotic course for joint infection. Removal of PICC line after completion of antibiotic course. weekly cbc, renal panel, esr Take all other home medications prescribed Follow-up with the PCP as outpatient within a week Follow-up with orthopedics, Dr. Mccord as outpatient within a week In case of emergency, call 911 and come back to the ED Case discussed with my senior resident Dr. Funes Case discussed with my attending Dr. Reyna Caballero Olga Lidia, DO PGY 1 Time Spent with Patient Time attestation: Total time spent providing and/or coordinating discharge services: Time spent: Greater than 30 minutes Exam Vital Signs Temp Pulse Resp BP Pulse Ox O2 Del Method O2 Flow Rate 97.8 F 94 18 100/68 96 Room Air 2 04/14/25 12:00 04/14/25 12:04/14/25 12:04/14/25 12:04/14/25 12:04/14/25 12:04/13/25 15:30 Narrative Exam General: Well appearing, well nourished, in no distress. Oriented x 3, normal mood and affect . sitting at the edge of the bed, Head: Normocephalic, atraumatic, no visible or palpable masses, depressions, or scaring. Heart: regular rate and rhythm, no murmur or gallop Lungs: Clear to auscultation and percussion. No rales, wheeze, or rhonchi Abdomen: Bowel sounds normal, no tenderness Back: Spine normal without deformity or tenderness, Extremities: LLE with excoriations healing on anterior patellar surface. Erythema and mildly violacious at knee, and proximally and distally. no puralent drainage, tender to palpation, 610 Musculoskeletal: range of motion is improved from prior, sitting with LLE flexed at 90 degrees and able to range with active and passive motion to full extention at knee Discharge Plan Plan Patient Disposition: Home w/HOME HEALTH Patient condition on transfer: Stable Care Plan Goals: You will need to continue IV antibiotic for 4 weeks including 2 g IV ceftriaxone once daily and p.o. doxycycline twice daily until May 08 to complete antibiotic course for joint infection. Removal of PICC line after completion of antibiotic course. weekly cbc, renal panel, esr Take all other home medications prescribed Follow-up with the PCP as outpatient within a week Follow-up with orthopedics, Dr. Mccord as outpatient within a week In case of emergency, call 911 and come back to the ED Prescriptions/Referrals Prescriptions/Med Rec: New doxycycline hyclate 100 mg Tablet 100 mg PO BID 25 Days Qty: 50 0RF pantoprazole [Protonix] 40 mg tablet,delayed release (DR/EC) 40 mg PO QDAY Qty: 30 0RF Continued atorvastatin 40 mg tablet 40 mg PO QDAY Patient Comments: TAKE ONE TABLET BY MOUTH EVERY DAY FOR CHOLESTEROL hydrocodone-acetaminophen 5-325 mg tablet 1 tab PO Q6H PRN (Reason: pain) lisinopril 20 mg tablet 20 mg PO QDAY ibuprofen 400 mg tablet 400 mg PO Q8H PRN (Reason: fever or pain) metformin 500 mg tablet extended release 24 hr 500 mg PO QDAY Jamila-Bid 1 billion cell- 250 mg tablet 1 tab PO QDAY Referrals: Mata ([facility])Brandy PA-C [Primary Care Provider] - Suri,Rasheed L, MD [Physician] - Patient/Caregiver Discharge Instructions Discharge Activity: activity as tolerated Education Materials: Discharge Instructions for Cellulitis, ED Cellulitis Print Language: Yakut Stand Alone Forms: Felipa Award Info., Patient Portal Info Letter Discharge Order Discharge Orders: Discharge (Routine); Ordered 04/14/25 Ordered By: Mati Funes Quality Discharge Quality Measures none
[2025-04-14] MEDS: cefTRIAXone/D5w 1gm IV premix 1 GM/50 ML BAG IV (13:43)
[2025-04-14 16:00] VITALS: BP 107/77; PULSE 90; RESP 18; TEMP 36.3; O2SAT 94
== END 2025-04-14 17:01 | disposition home health service (06) | DRG 383 ==
LOC: SERX 04-08 01:46 → SERHOLD 04-08 02:10 → S3NX 04-08 06:19
PROVIDERS: Internal Medicine Infectious Disease; Orthopaedic Surgery; Physician Assistant; Admitting Provider Student in an Organized Health Care Education/Training Program; Emergency Provider Emergency Medicine; PCP Physician Assistant; Visit Provider Student in an Organized Health Care Education/Training Program
DX: L03.116 Cellulitis of left lower limb (principal); L02.416 Cutaneous abscess of left lower limb; R73.03 Prediabetes; M25.462 Effusion, left knee; I10 Essential (primary) hypertension; E66.9 Obesity, unspecified; Z68.30 Body mass index [BMI] 30.0-30.9, adult; E78.5 Hyperlipidemia, unspecified; S81.032A Puncture wound without foreign body, left knee, initial encounter; R74.01 Elevation of levels of liver transaminase levels; E83.42 Hypomagnesemia; S83.519A Sprain of anterior cruciate ligament of unspecified knee, initial encounter; E78.1 Pure hyperglyceridemia; Z79.84 Long term (current) use of oral hypoglycemic drugs; Z79.899 Other long term (current) drug therapy; W26.8XXA Contact with other sharp object(s), not elsewhere classified, initial encounter; X58.XXXA Exposure to other specified factors, initial encounter
CPT/HCPCS: 36415; 73562; 73721; 76882; 80053; 80061; 80202; 83036; 83605; 83735; 84100; 84145; 84315; 85025; 85610; 85652; 85730; 86140; 86331; 86635; 86703; 86803; 87040; 87070; 87075; 87205; 87491; 87591; 87661; 89051; 90715; 93225; 93971; 96365; 96366; 96375; 96376; 99284; C1751; C1894; J0696; J1642; J1650; J1956; J2270; J2405; J2543; J3370; J3372; J3373; J3375; J3475; J3490; J7050; J7120; A9270

== ENCOUNTER 2025-04-19 12:40 | Emergency (ER) | payer MEDICAID, SELFPAY ==
[2025-04-19 12:41] VITALS: BMI 28.3
[2025-04-19 12:58] VITALS: BP 144/87; PULSE 88; RESP 18; TEMP 37.1; O2SAT 98
--- NOTE | 2025-04-19 13:26 | PD.EDADULT ---
ED General RME/HPI General Chief complaint: General Adult/Misc Complain Stated complaint: PICC LINE CLOGGED Time Seen by Provider: 04/19/25 12:42 Source: patient Arrival date/time: 04/19/25 12:40 49-year-old male with a history of hyperlipidemia, type 2 diabetes, hypertension presents to the emergency room with a chief complaint of his PICC line clogged x 1 day Mode of arrival: ambulatory Limitations: no limitations Related Data Home Medications ?Medication ?Instructions ?Recorded ?Confirmed L.acidophilus-L.bulgar-B.bifid-S.thermoph 1 tab PO QDAY 04/08/25 04/08/25 1 billion cell-250 mg tablet (Jamila-Bid) atorvastatin 40 mg tablet 40 mg PO QDAY 04/08/25 04/08/25 hydrocodone 5 mg-acetaminophen 325 1 tab PO Q6H PRN pain 04/08/25 04/08/25 mg tablet ibuprofen 400 mg tablet 400 mg PO Q8H PRN fever or pain 04/08/25 04/08/25 lisinopril 20 mg tablet 20 mg PO QDAY 04/08/25 04/08/25 metformin 500 mg tablet,extended 500 mg PO QDAY 04/08/25 04/08/25 release 24 hr Previous Rx's ?Medication ?Instructions ?Recorded doxycycline hyclate 100 mg tablet 100 mg PO BID 25 days #50 tabs 04/14/25 pantoprazole 40 mg tablet,delayed 40 mg PO QDAY #30 tabs 04/14/25 release (Protonix) Allergies Allergy/AdvReac Type Severity Reaction Status Date / Time No Known Allergies Allergy Verified 04/19/25 12:43 Review of Systems Review of Systems Systems Reviewed: All systems reviewed, normal except as documented Constitutional Constitutional: Reports system reviewed and no additional complaints, except as documented, Denies fatigue, Denies fever(s), Denies headache(s) and Denies weakness Eyes Eyes: Reports system reviewed and no additional complaints, except as documented, Denies blurry vision and Denies change in vision ENT Ears, Nose, Mouth, and Throat: Reports system reviewed and no additional complaints, except as documented, Denies otalgia, Denies headache(s), Denies nasal congestion, Denies throat swelling and Denies vertigo Cardiovascular Cardiovascular: Reports system reviewed and no additional complaints, except as documented, Denies chest pain, Denies dyspnea and Denies dyspnea on exertion Respiratory Respiratory: Reports system reviewed and no additional complaints, except as documented, Denies chest congestion, Denies cough, Denies dyspnea, Denies dyspnea on exertion and Denies wheezing Gastrointestinal Gastrointestinal: Reports system reviewed and no additional complaints, except as documented, Denies abdominal pain, Denies cramping, Denies nausea and Denies vomiting Genitourinary Genitourinary: Reports system reviewed and no additional complaints, except as documented, Denies dysuria and Denies hematuria Musculoskeletal Musculoskeletal: Reports system reviewed and no additional complaints, except as documented and Denies back pain Integumentary/Breasts Skin/Breast: Reports system reviewed and no additional complaints, except as documented and Denies wounds Neurologic Neurologic: Reports system reviewed and no additional complaints, except as documented, Denies confusion, Denies headache(s), Denies lack of coordination, Denies vertigo and Denies weakness Psychiatric Psychiatric: Reports system reviewed and no additional complaints, except as documented, Denies anxiety, Denies confusion, Denies depression, Denies paranoia, Denies suicidal ideation and Denies tactile hallucinations Endocrine Endocrine: Reports system reviewed and no additional complaints, except as documented and Denies fatigue Hematologic/Lymphatic Hematologic/Lymphatic: Reports system reviewed and no additional complaints, except as documented and Denies lymphadenopathy Allergic/Immunologic Allergic/Immunologic: Reports system reviewed and no additional complaints, except as documented, Denies throat swelling, Denies urticaria and Denies wheezing Past Medical History Past Medical History NEUROLOGIC: Negative Neurological Disorders CARDIAC: Negative Cardiac Disorders or Congestive Heart Failure RESPIRATORY: Negative Chronic Obstructive Pulmonary Disease (COPD) GASTROINTESTINAL: Negative Gastrointestinal Disorders GENITOURINARY: Negative Genitourinary Disorders or Renal Disease REPRODUCTIVE: Negative Testicular Cancer MUSCULOSKELETAL: Negative Musculoskeletal Disorders ENDOCRINE: Positive Endocrine Disorders and Diabetes Mellitus Type 2; Negative Diabetes Mellitus Type 1 HEMATOLOGIC: Negative Blood Disorders OTHER HISTORY: Negative Hospitalization, Autoimmune Disease, Down Syndrome, Developmental Delay, Falls, Blood Transfusions, Anesthesia Reactions, Chicken Pox, Measles, Mumps, Cancer or Testicular Cancer Family History FAMILY HISTORY: Negative Family Psychiatric Problems, Family Respiratory Disorders, Family Cardiac Disorders, Family Gastrointestinal Problems, Family Cancer or Family Surgery Surgical History SURGICAL: Negative Vasectomy Social History SMOKING STATUS: Never smoker SECOND HAND EXPOSURE: No ED Exam General Limitations: Present no limitations General appearance: Present alert and in no apparent distress Head Head exam: Present atraumatic Eye Eye exam: Present normal appearance, PERRL and EOMI ENT ENT exam: Present normal exam, normal oropharynx and mucous membranes moist Neck Neck exam: Present normal inspection, full ROM and trachea midline Chest Chest inspection: Present normal inspection and symmetric chest wall rise Respiratory Respiratory exam: Present normal lung sounds bilaterally Cardiovascular Cardiovascular exam: Present regular rate, normal rhythm and normal heart sounds Abdominal Exam Abdominal exam: Present soft and normal bowel sounds Extremities Exam Extremities exam: Present normal inspection and full ROM Back Exam Back exam: Present normal inspection and full ROM Neurological Exam Neurological exam: Present alert, oriented X3 and CN II-XII intact Psychiatric Psychiatric exam: Present normal affect and normal mood Skin Skin exam: Present warm, dry, intact and normal color Course Quality Measures none Orders Category Date Time Status Insert IV NOW Care 04/19/25 13:47 Active May Access Central Line NOW Care 04/19/25 13:45 Ordered Ketorolac Inj [Toradol Inj] Med 04/19/25 13:12 Discontinued 30 mg IVP X1 ONE cefTRIAXone [Rocephin] 2 gm Med 04/19/25 13:13 Discontinued SODIUM CHLORIDE 0.9% (Popper) [Ns 0.9% (P)] 50 ml IV X1 Vital Signs Vital signs: Vital Signs Temperature 98.7 F 04/19/25 12:58 Pulse Rate 88 04/19/25 12:58 Respiratory Rate 18 04/19/25 12:58 Blood Pressure 144/87 H 04/19/25 12:58 Pulse Oximetry (%) 98 04/19/25 12:58 Oxygen Delivery Method Room Air 04/19/25 12:58 Discharge Plan Plan Patient Disposition: HOME (Self Care) Discharge Disposition comment: Stable Prescriptions/Referrals Prescriptions/Med Rec: No Action atorvastatin 40 mg tablet 40 mg PO QDAY Patient Comments: TAKE ONE TABLET BY MOUTH EVERY DAY FOR CHOLESTEROL hydrocodone-acetaminophen 5-325 mg tablet 1 tab PO Q6H PRN (Reason: pain) lisinopril 20 mg tablet 20 mg PO QDAY ibuprofen 400 mg tablet 400 mg PO Q8H PRN (Reason: fever or pain) metformin 500 mg tablet extended release 24 hr 500 mg PO QDAY Jamila-Bid 1 billion cell- 250 mg tablet 1 tab PO QDAY doxycycline hyclate 100 mg Tablet 100 mg PO BID 25 Days Qty: 50 0RF pantoprazole [Protonix] 40 mg tablet,delayed release (DR/EC) 40 mg PO QDAY Qty: 30 0RF Referrals: Mata ([facility]),GIANCARLO Nava [Primary Care Provider] - In 1 week Problem List Clinical Impression: Occlusion of peripherally inserted central catheter (PICC) line Patient/Caregiver Discharge Instructions Additional Instructions: Por favor, consulte con karimi m?dico de cabecera en las pr?ximas 24 a 48 horas. Nain de los puertos de karimi cat?ter PICC est? obstruido hoy; no hay un m?dico de IR para retirarlo y reemplazarlo. Nain de nona puertos a?n est? permeable y puede administrar karimi medicaci?n a nhan?s de ?l. Puede regresar ma?diandra para el reemplazo de karimi cat?ter PICC. Nona antibi?ticos intravenosos se administraron hoy en urgencias. Si observa cualquier signo de empeoramiento de los signos o s?ntomas, regrese a urgencias de inmediato. Print Language: Qatari Stand Alone Forms: Felipa Award Info., Patient Portal Info Letter PA/QUENCHING CAR OPERATOR Supervising Physician PA/NAIF Supervising Physician: Dr. Durand [facility] Narrative MDM hospital course: 49-year-old male with a history of hyperlipidemia, type 2 diabetes, hypertension presents to the emergency room with a chief complaint of his PICC line clogged x 1 day Patient is hemodynamically stable and in no apparent distress Physical examination shows a nonpatent PICC line. Only 1 line on the PICC line is working which is a purple side. The right side is nonpatent and I was unable to pull back any blood or flushing. I spoke to the patient and told him the her IR doctor will be here tomorrow when he can return for PICC line placement. The patient's 2 g of IV Rocephin were given through the port that was working and there were no complications. Patient was discharged and educated to follow-up with primary care provider in the next 24 to 48 hours and return to the emergency room for any evidence of worsening signs or symptoms Clinical Information Provided by none Medical Records Reviewed None Meds/Rx Considered, not Ordered Describe details: 2 g IV Rocephin were given Labs/Rad/Tests considered, not Ordered None Chronic Illness/Social Conditions which may negatively complicate care or outcome(s)-explain: None or not applicable EKG EKG not done Lab Interpretation Labs: none Imaging Imaging interpretation: none Medication Administration(s) Medication Administration History Discontinued Medications Ceftriaxone Sodium 2 gm/ (Sodium Chloride) 50 mls @ 100 mls/hr IV X1 ONE Stop: 04/19/25 13:42 Last Admin: 04/19/25 13:55 Dose: 100 mls/hr Documented By: SHEA Ketorolac Tromethamine (Ketorolac Inj 30 Mg/Ml Vial) 30 mg IVP X1 ONE Stop: 04/19/25 13:13 Last Admin: 04/19/25 13:57 Dose: Not Given Documented By: SHEA Non-Admin Reason: Patient Refused Diagnosis Differential diagnosis: Phlebitis/PICC line malfunction Differential dx and/or dx ruled out: Phlebitis Most likely dx, and/or detailed dx discussion: PICC line malfunction Dispositon Disposition: Discharge Home
[2025-04-19] MEDS: cefTRIAXone 2 GM in SODIUM CHLORIDE 0.9% (Popper) 50 ML IV (13:55)
== END 2025-04-19 14:38 | disposition home or self-care (01) ==
PROVIDERS: Emergency Provider Family Medicine; PCP Physician Assistant
DX: T82.594A Other mechanical complication of infusion catheter, initial encounter (principal); Y84.8 Other medical procedures as the cause of abnormal reaction of the patient, or of later complication, without mention of misadventure at the time of the procedure
CPT/HCPCS: 96365; 99284; J0696; J7050

== ENCOUNTER → 2025-05-27 | Outpatient (CLI) | payer MEDICAID, SELFPAY ==
--- NOTE | 2025-05-27 16:00 | XR_ITS ---
Examination: Ultrasound soft tissue knee TECHNIQUE: Grayscale sonographic images soft tissue anterior left knee Date and time: May 27, 2025 1547 hours INDICATIONS: Left knee swelling and pain beginning 2 months ago. FINDINGS: Free fluid irregular margins in the soft tissue anterior knee, 3.6 x 0.8 x 3.2 cm IMPRESSION: Irregular fluid collection in the soft tissue anterior knee, differential would include hematoma, less likely abscess, clinical correlation advised
== END | disposition home or self-care (01) ==
LOC: CDIM 15:26
PROVIDERS: PCP Nurse Practitioner Primary Care; Referring Provider Nurse Practitioner Primary Care; Visit Provider Nurse Practitioner Primary Care
DX: L03.116 Cellulitis of left lower limb (principal)
CPT/HCPCS: 76882

== ENCOUNTER → 2025-08-17 | Outpatient (CLI) | payer MEDICAID, SELFPAY ==
--- NOTE | 2025-08-17 13:04 | XR_ITS ---
EXAMINATION: Lumbar spine 7 views TECHNIQUE: AP, lateral, standing lateral flexion standing lateral extension,: Lateral lower lumbar spine, RPO LPO 7 views Date and time: August 17, 2025, 1317 hours INDICATIONS: Low back pain beginning 1 year ago FINDINGS: Lumbar levoscoliosis 8 degrees Moderate osteopenia Diffuse advanced facet arthropathy Grade 1 spondylolisthesis L5 on S1 Significant reduced range of motion between flexion and extension Mild to moderate diffuse lumbar degenerative disc disease most severe L3-L4 IMPRESSION: Mild to moderate diffuse lumbar degenerative disc disease with spinal stenosis Grade 1 spondylolisthesis L5 on S1
== END | disposition home or self-care (01) ==
LOC: CDIM 12:53
PROVIDERS: PCP Nurse Practitioner Primary Care; Referring Provider Neurological Surgery; Visit Provider Neurological Surgery
DX: M51.360 Other intervertebral disc degeneration, lumbar region with discogenic back pain only (principal); M48.061 Spinal stenosis, lumbar region without neurogenic claudication
CPT/HCPCS: 72114

== ENCOUNTER → 2025-09-02 | Outpatient (CLI) | payer MEDICAID, SELFPAY ==
--- NOTE | 2025-09-02 08:30 | XR_ITS ---
Examination: CT lumbar spine, without contrast. 2-D sagittal reconstructions. 2-D coronal reconstructions. 3-D reconstructions. Date and time of exam: September 02, 2025, 0822 hours INDICATIONS: Lower back pain beginning 1 year ago CTDI: vol (mGy): 30.2 DLP: (mGycm): 883 Technique: Multiple 1.25 mm axial sections of the lumbar spine without intravenous contrast have been obtained. 2-D sagittal and coronal reconstructions have been obtained. 3-D reconstructions have been obtained. Low dose protocols were performed. One or more of the following dose reduction techniques were used; automated exposure control, adjustment of the mA and/or KV according to patient size, use of iterative reconstruction technique. Findings: Severe osteopenia Grade 1 spondylolisthesis L5 on S1 No acute lumbar fracture L5-S1 grade 1 spondylolisthesis, 4 mm central lumbar disc bulge extending to the foraminal regions, bilateral moderate to severe L5 ganglionic compression L4-L5 4 mm left paracentral disc bulge displacing the left L5 nerve root L3-L4 2 mm central lumbar disc bulge More cephalad levels unremarkable IMPRESSION: L5-S1 grade 1 spondylolisthesis, 4 mm central lumbar disc bulge extending to the foraminal regions, producing bilateral moderate to severe L5 ganglionic compression L4-L5 4 mm left paracentral disc bulge displacing the left L5 nerve root
== END | disposition home or self-care (01) ==
PROVIDERS: PCP Nurse Practitioner Primary Care; Referring Provider Neurological Surgery; Visit Provider Neurological Surgery
DX: M43.17 Spondylolisthesis, lumbosacral region (principal); G95.20 Unspecified cord compression; M51.360 Other intervertebral disc degeneration, lumbar region with discogenic back pain only
CPT/HCPCS: 72131